=== PATIENT | female | born 1945 | race Caucasian/White ===

== ENCOUNTER 2016-10-17 20:00 | Inpatient (IN) | payer MEDICARE ==
[2016-10-17] MEDS ORDERED: SODIUM CHLORIDE 0.9% 500 ML IV STA (20:37)
[2016-10-17 21:12] LABS: Basophils % (A) 0 %; CH 31.3; CHCM 33.3; Eosinophils # (A) 0.1 k/uL (0-0.7); Eosinophils % (A) 1 %; HCT 37.9 % (34.0-46.0); HDW 2.54; HGB 12.5 gm/dL (11.4-16.0); Luc % (Auto) 1; Lymphocytes # (A) 1.1 k/uL (1.0-4.8); Lymphocytes % (A) 10 %; MCH 31.3 pg (25.0-35.0); MCHC 33.1 g/dL (31.0-37.0); MCV 94.5 fL (80.0-100.0); Mean Platelet Volume 8.5; Monocytes # (A) 0.5 k/uL (0-1.0); Monocytes % (A) 5 %; Neutrophils # (A) 8.5 k/uL (1.3-7.7); Neutrophils % (A) 82 %; RBC 4.01 m/uL (3.80-5.40); RDW 14.1 % (11.5-15.5); WBC 10.4 k/uL (3.8-10.6); WBC (Perox) 10.54
[2016-10-17 21:20] LABS: Prothrombin Time 10.2 sec (9.0-12.0)
[2016-10-17 21:21] LABS: ALT 69 U/L (9-52); AST 55 U/L (14-36); Alkaline Phosphatase 99 U/L (38-126); Anion Gap 14 mmol/L; Blood Urea Nitrogen 39 mg/dL (7-17); Calcium 10.4 mg/dL (8.4-10.2); Carbon Dioxide 25 mmol/L (22-30); Chloride 104 mmol/L (98-107); Glucose 243 mg/dL (74-99); Magnesium 1.8 mg/dL (1.6-2.3); Non-African American GFR(MDRD) 51 (>60 ml/min/1.73 sqM); Potassium 4.7 mmol/L (3.5-5.1); Sodium 143 mmol/L (137-145); Total Bilirubin 0.6 mg/dL (0.2-1.3); Total Protein 7.6 g/dL (6.3-8.2)
--- NOTE | 2016-10-17 21:30 | XR ---
EXAMINATION TYPE: XR chest 2V DATE OF EXAM: 10/17/2016 9:24 PM COMPARISON: 02/06/2016 HISTORY: Chest pain TECHNIQUE: Frontal and lateral views of the chest are obtained. FINDINGS: Heart and mediastinum are normal. Lungs are clear. Diaphragm is normal. Bony thorax is int act. IMPRESSION: Normal chest. No change.
--- NOTE | 2016-10-17 21:34 | XR ---
EXAMINATION TYPE: XR Hip LT and AP Pelvis DATE OF EXAM: 10/17/2016 9:31 PM COMPARISON: NONE HISTORY: Left hip pain TECHNIQUE: A single AP view of the pelvis is obtained. Two views of the left hip are obtained. FINDINGS: The pelvic ring is intact. Proximal left femur and hip joint are intact. There is no sign of a fracture. Sacroiliac joints appear normal. There is acetabular spur formation. CONCLUSION: Negative pelvis and left hip exam. Mild acetabular spurring noted.
--- NOTE | 2016-10-17 21:35 | XR ---
EXAMINATION TYPE: XR femur LT DATE OF EXAM: 10/17/2016 9:31 PM COMPARISON: NONE HISTORY: Pain TECHNIQUE: 4 views FINDINGS: There is a left knee prosthesis. Components appear in good position. I see no fracture. IMPRESSION: Negative left femur exam.
--- NOTE | 2016-10-17 21:36 | XR ---
EXAMINATION TYPE: XR tibia fibula LT DATE OF EXAM: 10/17/2016 9:31 PM COMPARISON: NONE HISTORY: Pain TECHNIQUE: 5 views FINDINGS: There is a left knee prosthesis. There is subcutaneous edema. Ankle mortise is anatomic. I see no fracture. There are plantar and Achilles calcaneal spurs. IMPRESSION: Degenerative changes. Soft tissue swelling. No fracture.
[2016-10-17 21:38] LABS: Partial Thromboplastin Time 20.2 sec (22.0-30.0)
--- NOTE | 2016-10-17 21:42 | ED ---
Fall HPI - General Chief Complaint: Fall Stated Complaint: Fall/Leg Injury Time Seen by Provider: 10/17/16 20:07 Source: patient, RN notes reviewed, old records reviewed Mode of arrival: EMS - History of Present Illness Initial Comments: Patient is a 71-year-old female chief complaint of a fall injury and injuring her left leg. Patient reports that she's felt twice today while trying to get up from the bathroom to her wheelchair. Patient reports that she has been feeling extremely weak. Patient reports that she also feels lightheaded. She denies any chest pain or abdominal pain. She reports that she has history of diabetes, hypertension and hyperlipidemia. Patient reports that she does have some significant swelling over her lower extremities. She reports that her left lower extremity seems to be worse than her right and she has difficulty ambulating and moving her legs. She does have bilateral knee replacements. Patient states that when she fell she had a call EMS to help her up. - Related Data Home Medications Medication Instructions Recorded Confirmed Aspirin EC [Ecotrin Low Dose] 81 mg PO DAILY 02/06/16 10/17/16 Glimepiride [Amaryl] 2 mg PO PC-LUNCH 02/06/16 10/17/16 Glimepiride [Amaryl] 6 mg PO QAM 02/06/16 10/17/16 Hydrochlorothiazide [Hydrodiuril] 25 mg PO DAILY 02/06/16 10/17/16 Losartan [Cozaar] 50 mg PO DAILY 02/06/16 10/17/16 Nateglinide [Starlix] 120 mg PO PC-SUPPER 02/06/16 10/17/16 Potassium Chloride [K-Tab ER] 8 meq PO DAILY 02/06/16 10/17/16 cloNIDine HCL [Catapres] 0.1 mg PO TID 02/06/16 10/17/16 metFORMIN HCL 1,000 mg PO AC-BID 02/06/16 10/17/16 sitaGLIPtin [Januvia] 100 mg PO DAILY 02/06/16 10/17/16 Ascorbic Acid [Vitamin C] 500 mg PO DAILY 02/07/16 10/17/16 Calcium Carbonate [Calcium] 500 mg PO DAILY 02/07/16 10/17/16 Cholecalciferol [Vitamin D3] 2,000 unit PO DAILY 02/07/16 10/17/16 Magnesium Chloride [Slow-Mag] 128 mg PO DAILY 02/07/16 10/17/16 Multivits-Min/Iron/FA/Lutein 1 each PO DAILY 02/07/16 10/17/16 [Centrum Silver Women Tablet] Vitamin E (Dl,Tocopheryl Acet) 400 mg PO DAILY 02/07/16 10/17/16 [Vitamin E] Atorvastatin [Lipitor] 40 mg PO HS 10/17/16 10/17/16 Fish Oil/Dha/Epa [Fish Oil 1,200 1 cap PO DAILY 10/17/16 10/17/16 mg Fish Oil] Gabapentin [Neurontin] 300 mg PO TID 10/17/16 10/17/16 Spironolactone [Aldactone] 25 mg PO DAILY 10/17/16 10/17/16 amLODIPine [Norvasc] 2.5 mg PO DAILY 10/17/16 10/17/16 Previous Rx's Medication Instructions Recorded amLODIPine [Norvasc] 5 mg PO DAILY tab 02/09/16 Allergies Allergy/AdvReac Type Severity Reaction Status Date / Time No Known Allergies Allergy Verified 10/17/16 20:30 Review of Systems ROS Statement: Those systems with pertinent positive or pertinent negative responses have been documented in the HPI. ROS Other: All systems not noted in ROS Statement are negative. Past Medical History Past Medical History: Diabetes Mellitus, Hyperlipidemia, Hypertension, Osteoarthritis (OA) Additional Past Medical History / Comment(s): neuropathy/FEET, gout lt ankle, chronic back pain, lt rotator cuff tear,recent lt ankle sprain History of Any Multi-Drug Resistant Organisms: None Reported Past Surgical History: Hysterectomy, Joint Replacement, Tonsillectomy Additional Past Surgical History / Comment(s): bilateral knee replacement , hysterectomy- 5 pound benign stump tumor removed Past Anesthesia/Blood Transfusion Reactions: No Reported Reaction Past Psychological History: Anxiety, Depression Additional Psychological History / Comment(s): pt lives with her sig other of 19 years-luis fernando. pt stated recently was hospitalized at [facility] for the same thing she is coming in with on 02-06-16. pt had just gotten out of rehab at [facility] today ,went home and was to weak to get herself to bathroom and fell. Smoking Status: Never smoker Past Alcohol Use History: None Reported Past Drug Use History: None Reported - Past Family History Mother Family Medical History: Congestive Heart Failure (CHF), Coronary Artery Disease (CAD), Diabetes Mellitus Brother(s) Additional Family Medical History / Comment(s): at age 38-aneurysm Father Family Medical History: Coronary Artery Disease (CAD), Diabetes Mellitus, Renal Disease Additional Family Medical History / Comment(s): cabg General Exam - General Exam Comments Initial Comments: Patient is a morbidly obese 71-year-old female. She does not appear to be in any significant distress. She is somewhat labored in her breathing. She reports that this is normal for her. Limitations: no limitations General appearance: alert, in no apparent distress Head exam: Present: atraumatic, normocephalic, normal inspection Eye exam: Present: normal appearance, PERRL, EOMI. Absent: scleral icterus, conjunctival injection, periorbital swelling ENT exam: Present: normal exam, mucous membranes moist Neck exam: Present: normal inspection. Absent: tenderness, meningismus, lymphadenopathy Respiratory exam: Present: decreased breath sounds. Absent: normal lung sounds bilaterally, respiratory distress, wheezes, rales, rhonchi, stridor Cardiovascular Exam: Present: regular rate, normal rhythm, normal heart sounds. Absent: systolic murmur, diastolic murmur, rubs, gallop, clicks GI/Abdominal exam: Present: soft, normal bowel sounds. Absent: distended, tenderness, guarding, rebound, rigid Extremities exam: Present: normal inspection, full ROM, normal capillary refill , other (Patient has significant bilateral pedal edema. 4+ pitting edema in the left lower sternal any. Patient has fungal infection and bilateral toes.). Absent: tenderness, pedal edema, joint swelling, calf tenderness Back exam: Present: normal inspection Neurological exam: Present: alert, oriented X3, CN II-XII intact Psychiatric exam: Present: normal affect, normal mood Skin exam: Present: warm, dry, intact, normal color. Absent: rash Course Vital Signs 10/17/16 20:06 Temperature 99.2 F Pulse Rate 92 Respiratory 18 Rate Blood Pressure 166/74 O2 Sat by Pulse 94 L Oximetry Medical Decision Making - Medical Decision Making Patient is a 71-year-old female chief complaint of left leg pain and feeling weak after falling twice today. Patient ports a prior to her fall she felt lightheaded and dizzy. Patient labs are reviewed. She does have an elevated troponin of 0.086. 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 Her primary care doctor is Dr. Hastings. She states that she's had significant swelling in her bilateral lower extremities patient denies any specific chest pain. Patient also shows signs of kidney damage with elevated BUN and creatinine. Patient will be started on maintenance fluids over hydrate her and cause more pedal edema. Patient will have repeat cardiac enzymes and consult cardiology. - Lab Data Result diagrams: 10/17/16 21:02 10/17/16 21:02 Lab Results 10/17/16 10/17/16 10/17/16 Range/Units 21:02 21:02 21:02 WBC 10.4 (3.8-10.6) k/uL RBC 4.01 (3.80-5.40) m/uL Hgb 12.5 (11.4-16.0) gm/dL Hct 37.9 (34.0-46.0) % MCV 94.5 (80.0-100.0) fL MCH 31.3 (25.0-35.0) pg MCHC 33.1 (31.0-37.0) g/dL RDW 14.1 (11.5-15.5) % Plt Count 149 L (150-450) k/uL Neutrophils % 82 % Lymphocytes % 10 % Monocytes % 5 % Eosinophils % 1 % Basophils % 0 % Neutrophils # 8.5 H (1.3-7.7) k/uL Lymphocytes # 1.1 (1.0-4.8) k/uL Monocytes # 0.5 (0-1.0) k/uL Eosinophils # 0.1 (0-0.7) k/uL Basophils # 0.0 (0-0.2) k/uL PT (9.0-12.0) sec INR (<1.1) APTT (22.0-30.0) sec Sodium 143 (137-145) mmol/L Potassium 4.7 (3.5-5.1) mmol/L Chloride 104 (98-107) mmol/L Carbon Dioxide 25 (22-30) mmol/L Anion Gap 14 mmol/L BUN 39 H (7-17) mg/dL Creatinine 1.06 H (0.52-1.04) mg/dL Est GFR (MDRD) Af Amer >60 (>60 ml/min/1.73 sqM) Est GFR (MDRD) Non-Af 51 (>60 ml/min/1.73 sqM) Glucose 243 H (74-99) mg/dL Calcium 10.4 H (8.4-10.2) mg/dL Magnesium 1.8 (1.6-2.3) mg/dL Total Bilirubin 0.6 (0.2-1.3) mg/dL AST 55 H (14-36) U/L ALT 69 H (9-52) U/L Alkaline Phosphatase 99 (38-126) U/L Total Creatine Kinase 112 (30-135) U/L CK-MB (CK-2) 1.9 (0.0-2.4) ng/mL CK-MB (CK-2) Rel Index 1.7 Troponin I 0.086 H* (0.000-0.034) ng/mL Total Protein 7.6 (6.3-8.2) g/dL Albumin 4.4 (3.5-5.0) g/dL 10/17/16 Range/Units 21:02 WBC (3.8-10.6) k/uL RBC (3.80-5.40) m/uL Hgb (11.4-16.0) gm/dL Hct (34.0-46.0) % MCV (80.0-100.0) fL MCH (25.0-35.0) pg MCHC (31.0-37.0) g/dL RDW (11.5-15.5) % Plt Count (150-450) k/uL Neutrophils % % Lymphocytes % % Monocytes % % Eosinophils % % Basophils % % Neutrophils # (1.3-7.7) k/uL Lymphocytes # (1.0-4.8) k/uL Monocytes # (0-1.0) k/uL Eosinophils # (0-0.7) k/uL Basophils # (0-0.2) k/uL PT 10.2 (9.0-12.0) sec INR 1.0 (<1.1) APTT 20.2 L (22.0-30.0) sec Sodium (137-145) mmol/L Potassium (3.5-5.1) mmol/L Chloride (98-107) mmol/L Carbon Dioxide (22-30) mmol/L Anion Gap mmol/L BUN (7-17) mg/dL Creatinine (0.52-1.04) mg/dL Est GFR (MDRD) Af Amer (>60 ml/min/1.73 sqM) Est GFR (MDRD) Non-Af (>60 ml/min/1.73 sqM) Glucose (74-99) mg/dL Calcium (8.4-10.2) mg/dL Magnesium (1.6-2.3) mg/dL Total Bilirubin (0.2-1.3) mg/dL AST (14-36) U/L ALT (9-52) U/L Alkaline Phosphatase (38-126) U/L Total Creatine Kinase (30-135) U/L CK-MB (CK-2) (0.0-2.4) ng/mL CK-MB (CK-2) Rel Index Troponin I (0.000-0.034) ng/mL Total Protein (6.3-8.2) g/dL Albumin (3.5-5.0) g/dL 10/17/16 21:42 Patient's EKG shows normal sinus rhythm. Nonspecific ST wave abnormality. Patient entered. 77 bpm. One edema seconds. Care estrogen 100 ms. QT/QTC 386/436 ms. - Radiology Data Radiology results: report reviewed Tib-fib shows changes, soft tissue swelling. No fracture. Negative pelvis and left hip exam. Mild acetabular spurring noted. Negative left femur exam. Chest x-ray is normal. No change. Disposition Clinical Impression: Elevated troponin, Heart failure, Left leg pain, Weak, Falls Disposition: ADMITTED IP TO THIS [facility] Condition: Stable Time of Disposition: 22:13
[2016-10-17 21:44] LABS: Creatine Kinase MB 1.9 ng/mL (0.0-2.4)
[2016-10-17 21:48] LABS: Troponin I 0.086 ng/mL (0.000-0.034)
[2016-10-17] MEDS ORDERED: ONDANSETRON 4 MG/2 ML VIAL IVP PRN (22:13)
[2016-10-17] MEDS ORDERED: NALOXONE 0.4 MG/ML 1 ML VIAL IV PRN (22:13)
[2016-10-17] MEDS ORDERED: ACETAMINOPHEN TAB 325 MG TAB PO PRN (22:13)
[2016-10-17] MEDS ORDERED: Acetaminophen-Codeine 300-30mg TAB PO PRN (22:13)
[2016-10-17] MEDS ORDERED: HYDROmorphone 1 MG/ML 1 ML SYRINGE IV PRN (22:13)
[2016-10-17] MEDS: SODIUM CHLORIDE 0.9% 1,000 ML IV SCH (22:28)
[2016-10-18] MEDS ORDERED: ATORVASTATIN 40 MG TAB PO STA (00:01)
[2016-10-18] MEDS ORDERED: GABAPENTIN 300 MG CAP PO STA (00:34)
[2016-10-18 00:38] LABS: Glucose,Whole Blood 219 mg/dL (75-99)
[2016-10-18] MEDS: IBUPROFEN 600 MG TAB PO SCH ×2 (01:08→09:28)
[2016-10-18 01:53] VITALS: BMI 49.8
[2016-10-18 04:15] LABS: Creatine Kinase MB 2.1 ng/mL (0.0-2.4)
[2016-10-18 04:24] LABS: Troponin I 0.104 ng/mL (0.000-0.034)
[2016-10-18 06:27] LABS: Glucose,Whole Blood 183 mg/dL (75-99)
[2016-10-18] MEDS ORDERED: PANTOPRAZOLE 40 MG/10 ML VIAL IV SCH (09:00)
[2016-10-18] MEDS ORDERED: amLODIPine 5 MG TAB PO SCH (09:00)
[2016-10-18] MEDS ORDERED: cloNIDine HCL 0.1 MG TAB PO SCH (09:00)
[2016-10-18] MEDS ORDERED: NON-FORMULARY DRUG (Fish Oil/Dha/Epa [Fish Oil 1,200 Mg Fish Oil] 1 CAP) PO SCH (09:00)
[2016-10-18] MEDS ORDERED: GABAPENTIN 300 MG CAP PO SCH (09:00)
[2016-10-18 09:21] LABS: Creatine Kinase MB 1.7 ng/mL (0.0-2.4)
[2016-10-18 09:26] LABS: Troponin I 0.084 ng/mL (0.000-0.034)
[2016-10-18] MEDS: ASPIRIN 81 MG CHEW PO SCH (09:31)
[2016-10-18] MEDS: POTASSIUM CHLORIDE ER 10 MEQ TAB.ER.PRT PO SCH (09:31)
[2016-10-18] MEDS: MAGNESIUM OXIDE 400 MG TAB PO SCH (09:31)
[2016-10-18] MEDS: CALCIUM CARBONATE 500 MG CHEWABLE PO SCH (09:32)
[2016-10-18] MEDS: ASCORBIC ACID 500 MG TAB PO SCH (09:32)
[2016-10-18] MEDS: CHOLECALCIFEROL 1,000 UNIT TAB PO SCH (09:33)
[2016-10-18] MEDS: LOSARTAN 50 MG TAB PO SCH (09:35)
[2016-10-18] MEDS: SPIRONOLACTONE 25 MG TAB PO SCH (09:35)
[2016-10-18] MEDS: HYDROCHLOROTHIAZIDE 25 MG TAB PO SCH (09:35)
[2016-10-18] MEDS: GLIMEPIRIDE 2 MG TAB PO SCH ×2 (09:36→14:21)
[2016-10-18] MEDS: LINAGLIPTIN 5 MG TABLET PO SCH (09:36)
[2016-10-18] MEDS: SODIUM CHLORIDE 0.9% 1,000 ML IV SCH (09:37)
[2016-10-18] MEDS: ENOXAPARIN 40 MG/0.4 ML SYRINGE SQ SCH (10:38)
[2016-10-18] MEDS: metFORMIN 500 MG TAB PO SCH ×2 (10:38→17:31)
--- NOTE | 2016-10-18 10:54 | P.CRDCN ---
History of Present Illness Consult date: 10/18/16 Requesting physician: Raymond Obrien Reason for Consult (text): Abnormal troponins Chief complaint: Falls History of present illness: This is a 71-year-old female with history of hypertension, diabetes, hyperlipidemia, strong family history of premature coronary artery disease, obesity, who follows with Dr. Betts as her etl lead in [facility]. She presents to the hospital after experiencing 2 falls at home. Apparently she was transitioning from her lazy boy chair to her wheelchair when her legs became extremely weak, and she fell to the ground. EMS arrived and assisted her to get to her wheelchair, she states then that she proceeded to the restroom , attempted to stand up to use her walker and again fell down. For this reason she came to the emergency room for further evaluation. Patient states that day in general she did not feel well, she was sweaty because the house was warm, had some mild nausea, denies any chest pain or difficulty in breathing. EKG on arrival showed a normal sinus rhythm with nonspecific ST-T wave changes. Chest x-ray normal. Left femur x-ray normal. Pelvic and left hip exam and x-ray normal. X-ray of left tibia reveal degenerative change and soft tissue swelling with no fracture. I pressure on arrival 166/74 with a heart rate in the 90s. 94% on room air. Temperature 99.2. Blood pressure this morning 140/ 60 with a heart rate in the 70s. White blood cell count normal, hemoglobin 12.5 , platelet count 149, potassium 4.7, BUN 39, creatinine 1.0. AST 55, ALT 69, troponins 0.086, 0.10, 0.084. Cardiology consultation was requested because of abnormal troponin values. At the time of my examination this morning, patient states she feels mildly tired and achy all over. Denies any chest discomfort or difficulty in breathing. Past Medical History Past Medical History: Diabetes Mellitus, Hyperlipidemia, Hypertension, Osteoarthritis (OA) Additional Past Medical History / Comment(s): neuropathy/FEET, gout lt ankle, chronic back pain, lt rotator cuff tear,recent lt ankle strain. History of Any Multi-Drug Resistant Organisms: None Reported Past Surgical History: Hysterectomy, Joint Replacement, Tonsillectomy Additional Past Surgical History / Comment(s): bilateral knee replacement , hysterectomy- 5 pound benign stump tumor removed Past Anesthesia/Blood Transfusion Reactions: No Reported Reaction Past Psychological History: Anxiety, Depression Additional Psychological History / Comment(s): pt lives with her sig other of 19 years-luis fernando. pt stated recently was hospitalized at [facility] for the same thing she is coming in with on 02-06-16. pt had just gotten out of rehab at [facility] today ,went home and was to weak to get herself to bathroom and fell. Smoking Status: Never smoker Past Alcohol Use History: None Reported Past Drug Use History: None Reported - Past Family History Mother Family Medical History: Congestive Heart Failure (CHF), Coronary Artery Disease (CAD), Diabetes Mellitus Brother(s) Additional Family Medical History / Comment(s): at age 38-aneurysm Father Family Medical History: Coronary Artery Disease (CAD), Diabetes Mellitus, Renal Disease Additional Family Medical History / Comment(s): cabg Medications and Allergies Home Medications Medication Instructions Recorded Confirmed Type Aspirin EC [Ecotrin Low Dose] 81 mg PO DAILY 02/06/16 10/17/16 History Glimepiride [Amaryl] 2 mg PO PC-LUNCH 02/06/16 10/17/16 History Glimepiride [Amaryl] 6 mg PO QAM 02/06/16 10/17/16 History Hydrochlorothiazide [Hydrodiuril] 25 mg PO DAILY 02/06/16 10/17/16 History Losartan [Cozaar] 50 mg PO DAILY 02/06/16 10/17/16 History Nateglinide [Starlix] 120 mg PO PC-SUPPER 02/06/16 10/17/16 History Potassium Chloride [K-Tab ER] 8 meq PO DAILY 02/06/16 10/17/16 History cloNIDine HCL [Catapres] 0.1 mg PO TID 02/06/16 10/17/16 History metFORMIN HCL 1,000 mg PO AC-BID 02/06/16 10/17/16 History sitaGLIPtin [Januvia] 100 mg PO DAILY 02/06/16 10/17/16 History Ascorbic Acid [Vitamin C] 500 mg PO DAILY 02/07/16 10/17/16 History Calcium Carbonate [Calcium] 500 mg PO DAILY 02/07/16 10/17/16 History Cholecalciferol [Vitamin D3] 2,000 unit PO DAILY 02/07/16 10/17/16 History Magnesium Chloride [Slow-Mag] 128 mg PO DAILY 02/07/16 10/17/16 History Multivits-Min/Iron/FA/Lutein 1 each PO DAILY 02/07/16 10/17/16 History [Centrum Silver Women Tablet] Vitamin E (Dl,Tocopheryl Acet) 400 mg PO DAILY 02/07/16 10/17/16 History [Vitamin E] Atorvastatin [Lipitor] 40 mg PO HS 10/17/16 10/17/16 History Fish Oil/Dha/Epa [Fish Oil 1,200 1 cap PO DAILY 10/17/16 10/17/16 History mg Fish Oil] Gabapentin [Neurontin] 300 mg PO TID 10/17/16 10/17/16 History Spironolactone [Aldactone] 25 mg PO DAILY 10/17/16 10/17/16 History amLODIPine [Norvasc] 2.5 mg PO DAILY 10/17/16 10/17/16 History Allergies Allergy/AdvReac Type Severity Reaction Status Date / Time No Known Allergies Allergy Verified 10/17/16 20:30 Physical Exam Vitals: Vital Signs Temp Pulse Pulse Resp BP BP Pulse Ox 10/18/16 04:00 98 F 72 18 140/67 95 10/17/16 23:57 97.8 F 77 18 167/72 94 L 10/17/16 23:39 78 18 166/75 94 L Intake and Output 10/17/16 10/18/16 10/18/16 22:59 06:59 14:59 Intake Total 1800 Balance 1800 Intake: Intake, IV Titration 1800 Amount Sodium Chloride 0.9% 1, 800 000 ml @ 100 mls/hr IV . Q10H ANGELIC Rx#:[id number] Sodium Chloride 0.9% 500 1000 ml @ 999 mls/hr IV .Q31M STA Rx#:[id number] Other: Voiding Method Bedpan # Voids 2 Weight 148 kg PHYSICAL EXAMINATION: HEENT: Head is atraumatic, normocephalic. Pupils equal, round. Neck is supple. There is no elevated jugular venous pressure. HEART EXAMINATION: Heart S1, S2 normal. No murmur or gallop heard. CHEST EXAMINATION: Lungs are clear to auscultation and precussion. No chest wall tenderness is noted on palpation or with deep breathing. ABDOMEN: Soft, obese, nontender. Bowel sounds are heard. No organomegaly noted. EXTREMITIES: 2+ peripheral pulses with trace evidence of peripheral edema and no calf tenderness noted. NEUROLOGIC patient is awake, alert and oriented -3. . Results 10/17/16 21:02 10/17/16 21:02 Cardiac Enzymes 10/18/16 10/18/16 Range/Units 03:15 08:16 CK-MB (CK-2) 2.1 1.7 (0.0-2.4) ng/mL Troponin I 0.104 H* 0.084 H* (0.000-0.034) ng/mL Current Medications Generic Name Dose Route Start Last Admin Trade Name Freq PRN Reason Stop Dose Admin Acetaminophen 650 mg 10/17/16 22:13 Tylenol Tab PO Q6HR PRN Mild Pain or Fever > 100.5 Acetaminophen/Codeine Phosphate 1 each 10/17/16 22:13 Tylenol #3 PO Q4HR PRN Moderate Pain Amlodipine Besylate 5 mg 10/18/16 09:00 10/18/16 10:39 Norvasc PO 5 mg DAILY ANGELIC Administration Ascorbic Acid 500 mg 10/18/16 09:00 10/18/16 09:32 Vitamin C PO 500 mg DAILY ANGELIC Administration Aspirin 81 mg 10/18/16 09:00 10/18/16 09:31 Aspirin PO 81 mg DAILY ANGELIC Administration Atorvastatin Calcium 40 mg 10/18/16 21:00 Lipitor PO HS [facility] Calcium Carbonate/Glycine 500 mg 10/18/16 09:00 10/18/16 09:32 Tums PO 500 mg DAILY ANGELIC Administration Cholecalciferol 2,000 unit 10/18/16 09:00 10/18/16 09:33 Vitamin D3 PO 2,000 unit DAILY ANGELIC Administration Clonidine 0.1 mg 10/18/16 09:00 10/18/16 09:33 Catapres PO 0.1 mg TID ANGELIC Administration Enoxaparin Sodium 40 mg 10/18/16 09:00 10/18/16 10:38 Lovenox SQ 40 mg DAILY ANGELIC Administration Gabapentin 300 mg 10/18/16 09:00 10/18/16 09:34 Neurontin PO 300 mg TID ANGELIC Administration Glimepiride 2 mg 10/18/16 13:30 Amaryl PO PC-LUNCH ANGELIC Glimepiride 6 mg 10/18/16 09:00 10/18/16 09:36 Amaryl PO 6 mg QAM ANGELIC Administration Hydrochlorothiazide 25 mg 10/18/16 09:00 10/18/16 09:35 Hydrodiuril PO 25 mg DAILY ANGELIC Administration Hydromorphone HCl 1 mg 10/17/16 22:13 Dilaudid IV Q3HR PRN Severe Pain Sodium Chloride 1,000 mls @ 100 mls/hr 10/17/16 22:15 10/18/16 09:37 Saline 0.9% IV 100 mls/hr .Q10H ANGELIC Administration Ibuprofen 600 mg 10/18/16 01:00 10/18/16 09:28 Motrin PO 600 mg TID ANGELIC Administration Linagliptin 5 mg 10/18/16 09:00 10/18/16 09:36 Tradjenta PO 5 mg DAILY ANGELIC Administration Losartan Potassium 50 mg 10/18/16 09:00 10/18/16 09:35 Cozaar PO 50 mg DAILY ANGELIC Administration Magnesium Oxide 200 mg 10/18/16 09:00 10/18/16 09:31 Mag-Ox PO 200 mg DAILY ANGELIC Administration Metformin HCl 1,000 mg 10/18/16 07:30 10/18/16 10:38 Glucophage PO 1,000 mg AC-BID ANGELIC Administration Naloxone HCl 0.2 mg 10/17/16 22:13 Narcan IV Q2M PRN Opioid Reversal Nateglinide 120 mg 10/18/16 18:30 Starlix PO PC-SUPPER ANGEILC Ondansetron HCl 4 mg 10/17/16 22:13 Zofran IVP Q8HR PRN Nausea And Vomiting Pantoprazole Sodium 40 mg 10/18/16 09:00 10/18/16 09:25 Protonix IV 40 mg DAILY ANGELIC Administration Potassium Chloride 10 meq 10/18/16 09:00 10/18/16 09:31 K-Dur 10 PO 10 meq DAILY ANGELIC Administration Spironolactone 25 mg 10/18/16 09:00 10/18/16 09:35 Aldactone PO 25 mg DAILY ANGELIC Administration Intake and Output 10/17/16 10/18/16 10/18/16 22:59 06:59 14:59 Intake Total 1800 Balance 1800 Intake: Intake, IV Titration 1800 Amount Sodium Chloride 0.9% 1, 800 000 ml @ 100 mls/hr IV . Q10H ANGELIC Rx#:[id number] Sodium Chloride 0.9% 500 1000 ml @ 999 mls/hr IV .Q31M STA Rx#:[id number] Other: Voiding Method Bedpan # Voids 2 Weight 148 kg EKG Interpretations (text) EKG shows normal sinus rhythm with nonspecific ST-T wave changes. Assessment and Plan Plan: Assessment and Plan #1 episode of falls, likely secondary to weakness, no evidence of syncope #2 hypertension history #3 diabetes #4 hyperlipidemia #5 obesity #6 family history of premature coronary artery disease #7 chronic bilateral lower extremity weakness with associated neuropathy #8 abnormal troponins, not consistent with acute coronary syndrome. Plan We will obtain an echocardiogram with Doppler study. It does not appear that the patient had syncopal episode, troponins not consistent with acute coronary syndrome. We will attempt to obtain the records from the patient's etl lead in [facility], she thinks her last Lexiscan stress test was performed approximately 2 years ago. continue current medications. DNP note has been reviewed, I agree with a documented findings and plan of care. Patient was seen and examined.
[2016-10-18 11:01] LABS: Hemoglobin A1C 8.2 % (4.2-6.1)
[2016-10-18 11:49] LABS: Glucose,Whole Blood 222 mg/dL (75-99)
[2016-10-18] MEDS: METOPROLOL TARTRATE 25 MG TAB PO SCH ×2 (14:22→20:40)
--- NOTE | 2016-10-18 14:27 | HP ---
DATE OF ADMISSION: 10/17/2016 PRESENTING COMPLAINT: Weak in the legs. HISTORY OF PRESENTING COMPLAINT: This is a pleasant 71-year-old patient of Dr. Hastings with rather extensive medical history. Patient's chronic stable conditions include diabetes mellitus type 2, hypertension, hyperlipidemia, osteoarthritis, peripheral neuropathy, anxiety, depression. Patient has some lower extremity swelling, has noted the swelling did go up. Patient normally uses a walker ( ) if any but does need help to get transferred. While she was dressing herself, she went down, not able to pick herself up. EMS had to be called out. The patient noticing that with increasing swelling of the legs, she has been having more trouble getting about. The patient has been having more trouble getting about. The patient has been in rehab in the past. There was no dizziness. No palpitation. No chest pain. REVIEW OF SYSTEMS: CONSTITUTIONAL: Tired. HEENT: None. RESPIRATORY: None. CARDIOVASCULAR: None. GASTROINTESTINAL: None. GENITOURINARY: None. MUSCULOSKELETAL: Aches and pains in multiple joints. Dermatological: Redness in the lower extremities. NEUROLOGICAL: Numbness and tingling in the lower extremities. PSYCHIATRY: Anxiety, depression. Past medical history of diabetes, hypertension, hyperlipidemia, osteoarthritis, peripheral neuropathy, anxiety, depression, gait dysfunction, gout, chronic low back pain, left rotator cuff tear, left recent ankle strain. PAST SURGICAL HISTORY: Hysterectomy, joint replacement, tonsillectomy, bilateral knee replacement, hysterectomy. Past psych history: Anxiety, depression. SOCIAL HISTORY: The patient lives at ( ) 19 years of age. No smoking. No alcohol. FAMILY HISTORY: Congestive heart failure, coronary artery disease, diabetes. HOME MEDICATIONS: 1. Januvia 100 mg a day. 2. Metformin 1000 mg p.o. b.i.d. 3. ( ) t.i.d. 4. Norvasc 5 mg p.o. daily. 5. Norvasc 2.5 mg p.o. daily. 6. Aldactone 25 mg daily p.o. daily. 7. Potassium 80 meq p.o. daily. 8. Starlix 120 mg with supper. 9. Centrum Silver 1 tablet p.o. daily. 10. Slow-Mag 128 mg p.o. daily. 11. Cozaar 50 mg p.o. daily. 12. Hydrochlorothiazide 25 mg daily. 13. Amaryl 2 mg with lunch, 6 mg in the morning. 14. Neurontin 300 mg p.o. t.i.d. 15. Fish oil 1 capsule p.o. daily. 16. Vitamin D3, 2000, p.o. daily. 17. Calcium 500 mg p.o. daily. 18. Lipitor 40 mg q.h.s. 19. Aspirin 81 mg daily. 20. Vitamin C 500 mg daily. ALLERGIES: None. On examination, temperature 99.2, pulse 98, respiratory rate 18, blood pressure 166/74, pulse ox 94% on room air. GENERAL APPEARANCE: Morbidly obese. BMI 56, sitting in bed, not in distress. EYES: Pupils equal. Conjunctivae normal. HEENT: External appearance of nose and ears normal. Oral cavity normal. NECK: Short, thick, JVD unable to assess. Mass not palpable. RESPIRATORY: Effort increased. LUNGS: Distant breath sounds. CARDIOVASCULAR: Heart sounds muffled. Edema present. ABDOMEN: Large, soft. Liver and spleen not palpable. LYMPHATIC: No lymph nodes palpable in neck or axillae. PSYCHIATRY: Alert and oriented x3. Mood and affect normal. NEUROLOGICAL: Pupils equal. Cranial nerves grossly intact. Decreased sensation distally. EXTREMITIES: Edema in both lower extremities. Dermatological: Some superficial redness in both shins. MUSCULOSKELETAL: Evidence of osteoarthritis, especially in the hands. INVESTIGATIONS: White count 10.4, hemoglobin 12.5, potassium 4.7. BUN 39, creatinine 1.06. Troponin 0.086, 0.104, 0.084. EKG nonspecific changes. The patient had tib/fibular hip femur x-rays that was negative for any fracture. Chest x-ray was reviewed. Report is unremarkable. ASSESSMENT: 1. This is a patient who presented with fall, which is multifactorial, including patient is morbidly obese, 56, usually needs help with transfer. Also in addition the patient has peripheral neuropathy, also especially lower extremity swelling and all of these contributed to patient having a fall. There was no obvious cardiac presentation. 2. Troponin leak, probably because of hemodynamic instability. Patient has been on the dry side. 3. Bilateral lower extremity edema, probably a combination of venous insufficiency and patient was also being on Amlodipine causing a side effect of the same and also the patient on Neurontin which also has a side effect of peripheral edema. 4. Diabetes mellitus type 2, chronically on oral hypoglycemic, causing peripheral neuropathy. 5. Essential hypertension, uncontrolled. 6. Hyperlipidemia. 7. Primary osteoarthritis, multiple joints bilateral. 8. Anxiety, depression, not otherwise specified. 9. Morbid obesity, body mass index 56.0. PLAN: Given the swelling of the lower extremity, we will cut back on the dose of Neurontin. Also discontinue the patient's Amlodipine. Instead, we will start on Lopressor 75 twice a day and given that is not a result from bradycardia, we will also scale back on the dose of Catapres and slowly wean it off. Patient is also on Cozaar. We will increase the dose of the same if needed. Given also muscle weakness, we will temporarily hold off patient's Lipitor and we will also use Silvadene cream and chaparro wrap of the lower extremity. 2-D echocardiogram is being ordered. Will also use naproxen for some anti-inflammatory effect. We will keep the patient on the Aldactone as that will actually help most of the blood pressure control and some fluids. We will discontinue the patient's hydrochlorothiazide. Patient already received some fluids on admission. We will discontinue the same given the edema. Cardiology opinion was sought. Care was discussed with the patient.
[2016-10-18] MEDS: GABAPENTIN 100 MG CAP PO SCH ×2 (16:18→22:09)
[2016-10-18 17:02] LABS: Glucose,Whole Blood 196 mg/dL (75-99)
[2016-10-18] MEDS ORDERED: NATEGLINIDE 120 MG TAB PO SCH (18:30)
[2016-10-18] MEDS: NAPROXEN 250 MG TAB PO SCH (20:40)
[2016-10-18] MEDS: cloNIDine HCL 0.1 MG TAB PO SCH (20:40)
[2016-10-18 20:45] LABS: Glucose,Whole Blood 183 mg/dL (75-99)
[2016-10-18] MEDS ORDERED: ATORVASTATIN 40 MG TAB PO SCH (21:00)
[2016-10-19 06:11] LABS: Glucose,Whole Blood 174 mg/dL (75-99)
[2016-10-19] MEDS: metFORMIN 500 MG TAB PO SCH ×2 (06:38→16:57)
[2016-10-19] MEDS: PANTOPRAZOLE 40 MG TABLET PO SCH (06:38)
[2016-10-19 07:31] LABS: Anion Gap 11 mmol/L; Blood Urea Nitrogen 34 mg/dL (7-17); Calcium 9.8 mg/dL (8.4-10.2); Carbon Dioxide 24 mmol/L (22-30); Chloride 105 mmol/L (98-107); Glucose 163 mg/dL (74-99); Non-African American GFR(MDRD) >60 (>60 ml/min/1.73 sqM); Sodium 140 mmol/L (137-145)
[2016-10-19 07:52] LABS: Potassium 4.5 mmol/L (3.5-5.1)
[2016-10-19] MEDS: NAPROXEN 250 MG TAB PO SCH ×2 (08:55→22:54)
[2016-10-19] MEDS: ENOXAPARIN 40 MG/0.4 ML SYRINGE SQ SCH (08:55)
[2016-10-19] MEDS: CHOLECALCIFEROL 1,000 UNIT TAB PO SCH (08:55)
[2016-10-19] MEDS: GABAPENTIN 100 MG CAP PO SCH ×3 (08:55→22:54)
[2016-10-19] MEDS: METOPROLOL TARTRATE 25 MG TAB PO SCH ×2 (08:56→23:28)
[2016-10-19] MEDS: LINAGLIPTIN 5 MG TABLET PO SCH (08:56)
[2016-10-19] MEDS: GLIMEPIRIDE 2 MG TAB PO SCH ×2 (08:56→12:51)
[2016-10-19] MEDS: MAGNESIUM OXIDE 400 MG TAB PO SCH (08:56)
[2016-10-19] MEDS: HYDROCHLOROTHIAZIDE 25 MG TAB PO SCH (08:56)
[2016-10-19] MEDS: ASPIRIN 81 MG CHEW PO SCH (08:56)
[2016-10-19] MEDS: ASCORBIC ACID 500 MG TAB PO SCH (08:57)
[2016-10-19] MEDS: CALCIUM CARBONATE 500 MG CHEWABLE PO SCH (08:57)
[2016-10-19] MEDS: cloNIDine HCL 0.1 MG TAB PO SCH ×2 (08:57→22:54)
[2016-10-19] MEDS: POTASSIUM CHLORIDE ER 10 MEQ TAB.ER.PRT PO SCH (08:57)
[2016-10-19] MEDS: LOSARTAN 50 MG TAB PO SCH (08:57)
[2016-10-19] MEDS: SPIRONOLACTONE 25 MG TAB PO SCH (08:57)
--- NOTE | 2016-10-19 10:43 | ECHOF ---
Referral Reason:abn trop MEASUREMENTS -------- HEIGHT: 162.6 cm WEIGHT: 147.9 kg BP: 145/67 RVIDd: 3.9 cm (< 3.3) IVSd: 1.5 cm (0.6 - 1.1) LVIDd: 5.7 cm (3.9 - 5.3) LVPWd: 1.4 cm (0.6 - 1.1) IVSs: 2.1 cm LVIDs: 3.9 cm LVPWs: 2.2 cm LA Diam: 3.1 cm (2.7 - 3.8) Ao Diam: 2.8 cm (2.0 - 3.7) AV Cusp: 1.8 cm (1.5 - 2.6) LA Diam: 3.4 cm (2.7 - 3.8) MV EXCURSION: 17.354 mm (> 18.000) MV EF SLOPE: 97 mm/s (70 - 150) EPSS: 0.2 cm MV E [place]: 0.59 m/s MV DecT: 258 ms MV A [place]: 0.82 m/s MV E/A Ratio: 0.71 AV maxP.86 mmHg AV meanP.20 mmHg RAP: 5.00 mmHg RVSP: 22.99 mmHg FINDINGS -------- Sinus rhythm. This was a technically difficult study with suboptimal views. Morbid Obesity There is moderate concentric left ventricular hypertrophy. Overall left ventricular systolic function is normal with, an EF between 55 - 60 %. The right ventricle is mild to moderately enlarged. The left atrial size is normal. The right atrium is normal in size. 1.5mg of Definity was utilized for enhancement of images Aortic valve is trileaflet and is mildly thickened. Peak/mean gradient across the Aortic Valve is 15.86mmHg / 7.20mmHg. Mild mitral annular calcification present. There is trace mitral regurgitation. Mild tricuspid regurgitation present. Pulmonic valve appears structurally normal. The aortic root size is normal. IVC Not well visulized. Echo free space may represent effusion or a pericardial fat pad. CONCLUSIONS -------- 1. Sinus rhythm. 2. Aortic valve is trileaflet and is mildly thickened. 3. Peak/mean gradient across the Aortic Valve is 15.86mmHg / 7.20mmHg. 4. Mild mitral annular calcification present. 5. There is trace mitral regurgitation. 6. Mild tricuspid regurgitation present. 7. Pulmonic valve appears structurally normal. 8. The aortic root size is normal. 9. IVC Not well visulized. 10. Echo free space may represent effusion or a pericardial fat pad. 11. This was a technically difficult study with suboptimal views. 12. Morbid Obesity 13. There is moderate concentric left ventricular hypertrophy. 14. Overall left ventricular systolic function is normal with, an EF between 55 - 60 %. 15. The right ventricle is mild to moderately enlarged. 16. The left atrial size is normal. 17. The right atrium is normal in size. 18. 1.5mg of Definity was utilized for enhancement of images [employer]ELD [employer]OP FARMER: Adenike Sullivan RDCS
[2016-10-19 11:52] LABS: Glucose,Whole Blood 179 mg/dL (75-99)
[2016-10-19 16:55] LABS: Glucose,Whole Blood 177 mg/dL (75-99)
[2016-10-19] MEDS: NATEGLINIDE 120 MG TAB PO SCH (16:57)
[2016-10-19 20:24] LABS: Glucose,Whole Blood 164 mg/dL (75-99)
[2016-10-20] MEDS: LOSARTAN 50 MG TAB PO SCH ×3 (00:08→21:02)
[2016-10-20 06:57] LABS: Glucose,Whole Blood 174 mg/dL (75-99)
[2016-10-20] MEDS: CHOLECALCIFEROL 1,000 UNIT TAB PO SCH (07:55)
[2016-10-20] MEDS: metFORMIN 500 MG TAB PO SCH ×2 (07:55→16:54)
[2016-10-20] MEDS: CALCIUM CARBONATE 500 MG CHEWABLE PO SCH (07:56)
[2016-10-20] MEDS: ENOXAPARIN 40 MG/0.4 ML SYRINGE SQ SCH (07:56)
[2016-10-20] MEDS: ASPIRIN 81 MG CHEW PO SCH (07:56)
[2016-10-20] MEDS: ASCORBIC ACID 500 MG TAB PO SCH (07:56)
[2016-10-20] MEDS: PANTOPRAZOLE 40 MG TABLET PO SCH (07:56)
[2016-10-20] MEDS: GABAPENTIN 100 MG CAP PO SCH ×3 (07:57→21:02)
[2016-10-20] MEDS: HYDROCHLOROTHIAZIDE 25 MG TAB PO SCH (07:58)
[2016-10-20] MEDS: GLIMEPIRIDE 2 MG TAB PO SCH ×2 (07:58→12:30)
[2016-10-20] MEDS: LINAGLIPTIN 5 MG TABLET PO SCH (07:59)
[2016-10-20] MEDS: METOPROLOL TARTRATE 50 MG TAB PO SCH ×2 (08:00→21:07)
[2016-10-20] MEDS: MAGNESIUM OXIDE 400 MG TAB PO SCH (08:00)
[2016-10-20] MEDS: NAPROXEN 250 MG TAB PO SCH ×2 (08:01→21:01)
[2016-10-20] MEDS: POTASSIUM CHLORIDE ER 10 MEQ TAB.ER.PRT PO SCH (08:02)
[2016-10-20] MEDS: SPIRONOLACTONE 25 MG TAB PO SCH (08:02)
--- NOTE | 2016-10-20 08:28 | PN ---
DATE OF SERVICE: 10/19/2016 PRESENTING COMPLAINT: Weakness in the leg. INTERVAL HISTORY: This very pleasant obese lady presented with fall which is felt to be multifactorial mainly being deconditioned. Being further compromised with morbid obesity and peripheral neuropathy for cardiorenal failure workup. Patient's medications amlodipine was discontinued and dose of Neurontin cut back which is also contributing to peripheral edema. Blood pressure medications were adjusted. Patient comfortable in the bed. Review of systems done for constitutional, cardiovascular, cardiovascular, GI, pulmonary; relevant findings as above. Current medications are reviewed and dose of Neurontin was cut back. On examination, temperature 96.9, pulse 62, respirations 16, blood pressure 152/54, pulse ox 94% on room air. GENERAL APPEARANCE: Sitting in bed, comfortable. EYES: Pupils equal. Conjunctivae normal. NECK: JVD not raised. Mass not palpable. RESPIRATORY: Effort increased. LUNGS: Distant breath sounds. CARDIOVASCULAR: Heart sounds muffled. Decreased edema. ABDOMEN: Large, soft. Liver and spleen not palpable. PSYCHIATRY: Alert and oriented x3. Mood and affect normal. Lower extremity Samson wrap in place. INVESTIGATIONS: Two-D echo shows EF 55% to 60%. Potassium 4.5. BUN 34, creatinine 0.85. Accu-Cheks are noted. ASSESSMENT: 1. Fall which is multifactorial including morbid obesity causing deconditioning complicated by peripheral neuropathy and lower extremity swelling, all contributing to her fall making her unsteady. 2. Troponin leak, probably from hemodynamic instability. 3. Bilateral lower extremity edema. combination of venous insufficiency. Patient also being on amlodipine, now that has been discontinued and also dose of Neurontin has been cut back. 4. Diabetes mellitus, type 2, on oral hypoglycemics causing peripheral neuropathy. 5. Essential hypertension, better controlled. 6. Hyperlipidemia. 7. Primary osteoarthritis multiple joints, bilaterally. 8. Anxiety and depression, not otherwise specified. 9. Morbid obesity, body mass index 56. PLAN: Patient's several medications were adjusted yesterday. Lower extremities Samson wrapped. Pain is better controlled. Patient told about will need some long time planning. The patient's blood pressure is better controlled. We will discontinue the Catapres and increase the dose of Lopressor further so that we can get off the Catapres and take care of any central side effects. 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
[2016-10-20] MEDS ORDERED: LOSARTAN 50 MG TAB PO SCH (09:00)
[2016-10-20 11:00] LABS: Glucose,Whole Blood 220 mg/dL (75-99)
[2016-10-20] MEDS: NATEGLINIDE 120 MG TAB PO SCH (16:54)
[2016-10-20 17:18] LABS: Glucose,Whole Blood 131 mg/dL (75-99)
[2016-10-20 20:54] LABS: Glucose,Whole Blood 146 mg/dL (75-99)
[2016-10-21 07:14] LABS: Glucose,Whole Blood 174 mg/dL (75-99)
--- NOTE | 2016-10-21 08:01 | PN ---
DATE OF SERVICE: 10/20/2016 PRESENTING COMPLAINT: Weakness in the legs. INTERVAL HISTORY: This pleasant lady presented with a fall, multifactorial. She is probably being deconditioned. Patient's Neurontin was cut back and amlodipine was discontinued. Blood pressure medication adjusted, looking at going to the [facility]. Edema has gone down. Review of systems done for constitutional, cardiovascular, GI, pulmonary; relevant finding as above. Current medications are reviewed. On examination, temperature 98.1, pulse 56, respiration 18, blood pressure 145/71, pulse ox 96% on room air. GENERAL APPEARANCE: Sitting up, comfortable. EYES: Pupils equal. Conjunctivae normal. NECK: JVD not raised. Mass not palpable. Respiratory effort normal. LUNGS: Decreased breath sounds. CARDIOVASCULAR: Heart sounds muffled, edema has gone down. Abdomen flat, soft. Liver and spleen not palpable. PSYCHIATRY: Alert and oriented x3. Mood and affect are normal. INVESTIGATIONS: Accu-Cheks are noted. ASSESSMENT: 1. Fall, multifactor including morbid obesity, deconditioning, peripheral neuropathy. 2. Lower extremity swelling both from heavy dose of Neurontin and amlodipine. 3. Troponin leak, probably from hemodynamic instability. 4. Diabetes mellitus type 2, on oral hypoglycemic causing peripheral neuropathy. 5. Essential hypertension. 6. Hyperlipidemia. 7. Primary osteoarthritis of multiple joints bilaterally. 8. Anxiety and depression not otherwise specified. 9. Morbid obesity, body mass index of 56. PLAN: Continue current medication and treatment plan. Blood pressure is well controlled. Looking at DC to the ECF.
[2016-10-21] MEDS: NAPROXEN 250 MG TAB PO SCH (09:03)
[2016-10-21] MEDS: GABAPENTIN 100 MG CAP PO SCH ×2 (09:03→16:30)
[2016-10-21] MEDS: ENOXAPARIN 40 MG/0.4 ML SYRINGE SQ SCH (09:03)
[2016-10-21] MEDS: LOSARTAN 50 MG TAB PO SCH (09:04)
[2016-10-21] MEDS: SPIRONOLACTONE 25 MG TAB PO SCH (09:04)
[2016-10-21] MEDS: LINAGLIPTIN 5 MG TABLET PO SCH (09:05)
[2016-10-21] MEDS: METOPROLOL TARTRATE 50 MG TAB PO SCH (09:05)
[2016-10-21] MEDS: PANTOPRAZOLE 40 MG TABLET PO SCH (09:05)
[2016-10-21] MEDS: metFORMIN 500 MG TAB PO SCH ×2 (09:05→17:58)
[2016-10-21] MEDS: CHOLECALCIFEROL 1,000 UNIT TAB PO SCH (09:06)
[2016-10-21] MEDS: GLIMEPIRIDE 2 MG TAB PO SCH ×2 (09:06→13:00)
[2016-10-21] MEDS: HYDROCHLOROTHIAZIDE 25 MG TAB PO SCH (09:06)
[2016-10-21] MEDS: CALCIUM CARBONATE 500 MG CHEWABLE PO SCH (09:07)
[2016-10-21] MEDS: MAGNESIUM OXIDE 400 MG TAB PO SCH (09:07)
[2016-10-21] MEDS: ASCORBIC ACID 500 MG TAB PO SCH (09:07)
[2016-10-21] MEDS: POTASSIUM CHLORIDE ER 10 MEQ TAB.ER.PRT PO SCH (09:07)
[2016-10-21] MEDS: ASPIRIN 81 MG CHEW PO SCH (09:07)
[2016-10-21 11:12] LABS: Glucose,Whole Blood 222 mg/dL (75-99)
[2016-10-21] MEDS: PRAZOSIN 1 MG CAP PO SCH (16:31)
[2016-10-21 17:15] LABS: Glucose,Whole Blood 175 mg/dL (75-99)
[2016-10-21] MEDS: NATEGLINIDE 120 MG TAB PO SCH (17:58)
[2016-10-21 20:10] LABS: Glucose,Whole Blood 173 mg/dL (75-99)
[2016-10-22] MEDS: NAPROXEN 250 MG TAB PO SCH ×2 (00:23→08:29)
[2016-10-22] MEDS: METOPROLOL TARTRATE 50 MG TAB PO SCH ×2 (00:23→08:31)
[2016-10-22] MEDS: LOSARTAN 50 MG TAB PO SCH ×2 (00:23→08:31)
[2016-10-22] MEDS: PRAZOSIN 1 MG CAP PO SCH ×2 (00:23→08:30)
[2016-10-22] MEDS: GABAPENTIN 100 MG CAP PO SCH ×3 (00:24→13:44)
[2016-10-22 07:16] LABS: Glucose,Whole Blood 176 mg/dL (75-99)
[2016-10-22] MEDS: ENOXAPARIN 40 MG/0.4 ML SYRINGE SQ SCH (08:28)
[2016-10-22] MEDS: metFORMIN 500 MG TAB PO SCH (08:28)
[2016-10-22] MEDS: MAGNESIUM OXIDE 400 MG TAB PO SCH (08:29)
[2016-10-22] MEDS: ASPIRIN 81 MG CHEW PO SCH (08:30)
[2016-10-22] MEDS: GLIMEPIRIDE 2 MG TAB PO SCH ×2 (08:30→13:42)
[2016-10-22] MEDS: CHOLECALCIFEROL 1,000 UNIT TAB PO SCH (08:30)
[2016-10-22] MEDS: CALCIUM CARBONATE 500 MG CHEWABLE PO SCH (08:30)
[2016-10-22 08:31] VITALS: BP 138/70; PULSE 64; RESP 20; TEMP 97.7
[2016-10-22] MEDS: PANTOPRAZOLE 40 MG TABLET PO SCH (08:31)
[2016-10-22] MEDS: ASCORBIC ACID 500 MG TAB PO SCH (08:31)
[2016-10-22] MEDS: LINAGLIPTIN 5 MG TABLET PO SCH (08:32)
[2016-10-22] MEDS: SPIRONOLACTONE 25 MG TAB PO SCH (08:32)
--- NOTE | 2016-10-22 09:07 | PN ---
DATE OF SERVICE: 10/21/2016 PRESENTING COMPLAINT: Tired. INTERVAL HISTORY: This patient is a pleasant lady who presented with fall, multifactorial. Significantly deconditioned. Because of significant edema in lower extremity patient's Neurontin was cutback and amlodipine was discontinued. Earlier today the patient was to ( ) well and then patient just felt unrestful, somewhat anxious I think. Blood pressure elevated and did go up to over 180 and 200 systolic; hence, I added prazosin. Review of systems done for constitutional, cardiovascular, GI, pulmonary; relevant findings above. Patient is rather anxious. Current medications are reviewed. On examination, temperature 98.1, pulse 55, respiration 18, blood pressure up to 209/84, repeat blood pressure is 125/77. GENERAL APPEARANCE: Lying in bed, somewhat anxious appearing, awake. EYES: Pupils equal. Conjunctivae normal. NECK: JVD not raised. Mass not palpable. RESPIRATORY: Effort normal. LUNGS: Decreased breath sounds. CARDIOVASCULAR: Heart sounds muffled. Edema down. ABDOMEN: Soft, nontender. Liver and spleen not palpable. PSYCHIATRY: Alert and oriented x3. Mood and affect anxious appearing. INVESTIGATIONS: BUN 34, creatinine 0.85. ASSESSMENT: 1. Fall, multifactorial, including morbid obesity, deconditioning and peripheral neuropathy. 2. Lower extremity swelling both from heavy dose of Neurontin and amlodipine, now much improved. 3. Troponin leak probably from hemodynamic instability. 4. Diabetes mellitus type 2, on oral hypoglycemic causing peripheral neuropathy. 5. Essential hypertension. 6. Hyperlipidemia. 7. Primary osteoarthritis of multiple joints bilaterally. 8. Anxiety, depression, not otherwise specified. 9. Anxiety, uncontrolled. 10. Morbid obesity, body mass index of 56. 11. Essential hypertension, uncontrolled. PLAN: At this point will [facility]. Prazosin 2 mg 3 times a day has been added. Will see how the patient does with that. Other medication and treatment plan is to continue.
[2016-10-22 11:31] LABS: Glucose,Whole Blood 203 mg/dL (75-99)
--- NOTE | 2016-10-22 15:05 | DS ---
DATE OF ADMISSION: 10/21/2016 DATE OF DISCHARGE: 10/22/2016 FINAL DIAGNOSES: 1. Fall, multifactorial, including morbid obesity, deconditioning, peripheral neuropathy. 2. Lower extremity swelling as a side effect of dose of Neurontin and amlodipine ( ) discontinued. 3. Troponin leak from hemodynamic instability. 4. Diabetes mellitus, type 2, on oral hypoglycemic causing peripheral neuropathy. 5. Essential hypertension, urgency. 6. Hyperlipidemia. 7. Primary osteoarthritis in multiple joints bilaterally. 8. Anxiety, depression not otherwise specified. 9. Morbid obesity; body mass index of 56. HOSPITAL COURSE: This patient presented with a fall felt to be multifactorial. Patient has morbid obesity, peripheral nephropathy, is deconditioned. Significant lower extremity swelling is present. Dose of Neurontin was cut back. Amlodipine was discontinued. Blood pressure was running high. Medications were adjusted. At the time of discharge, blood pressure is well controlled. Care was discussed with the patient and significant other in detail. Patient will need long-term support. Patient's 2-D echocardiogram showed preserved LV function of 55% to 60% and LVH. There was no fracture. On exam, lungs have distant breath sounds. CARDIOVASCULAR: First and second sounds normal. Decreased edema. Because the dose of Neurontin was cut, it may be increased if felt appropriate. Other pain medications were added, including naproxen. DISCHARGE MEDICATIONS: 1. Aspirin 81 mg p.o. daily. 2. Amaryl 2 mg p.o. with lunch, 6 mg p.o. daily. 3. Starlix 120 mg p.o. with supper. 4. Metformin 1000 mg p.o. b.i.d. 5. Januvia 100 mg p.o. daily. 6. Vitamin C 500 mg p.o. daily. 7. Calcium 500 mg p.o. daily. 8. Vitamin D3, 2000 units p.o. daily. 9. Slow-Mag 120 mg p.o. daily. 10. Centrum Silver 1 tablet p.o. daily. 11. Tocopheryl (vitamin E) 400 mg p.o. daily. 12. Lipitor 40 mg p.o. at bedtime. 13. Fish oil 200 mg p.o. daily. 14. Aldactone 25 mg p.o. daily. 15. Neurontin 200 mg p.o. t.i.d. 16. Cozaar 50 mg p.o. b.i.d. 17. Lopressor 100 mg p.o. b.i.d. 18. Naproxen 250 mg p.o. b.i.d. for 7 days. 19. Minipress 2 mg p.o. t.i.d. 20. Silvadene cream topically to the lower extremity b.i.d. DISPOSITION: [facility]. Follow up with Dr. Hastings. LABS: CBC, BMP in 3 days. Discharge planning more than 35 minutes.
== END 2016-10-22 16:20 | DRG 74 ==
LOC: EC 20:00 → 6SEL 23:20 → 5MS5E 10-19 17:53 → OBSVTOIN 10-21 17:11
PROVIDERS: ADMIT Hospitalist; ATTEND Hospitalist
DX: E11.42 Type 2 diabetes mellitus with diabetic polyneuropathy (principal); I11.0 Hypertensive heart disease with heart failure; I50.9 Heart failure, unspecified; Z68.43 Body mass index [BMI] 50.0-59.9, adult; E66.01 Morbid (severe) obesity due to excess calories; I16.0 Hypertensive urgency; E78.5 Hyperlipidemia, unspecified; M19.91 Primary osteoarthritis, unspecified site; M79.89 Other specified soft tissue disorders; T42.6X5A Adverse effect of other antiepileptic and sedative-hypnotic drugs, initial encounter; T46.1X5A Adverse effect of calcium-channel blockers, initial encounter; F32.9 Major depressive disorder, single episode, unspecified; F41.9 Anxiety disorder, unspecified; M10.9 Gout, unspecified; G89.29 Other chronic pain; M54.9 Dorsalgia, unspecified; R26.2 Difficulty in walking, not elsewhere classified; I87.2 Venous insufficiency (chronic) (peripheral); Z90.710 Acquired absence of both cervix and uterus; Z83.3 Family history of diabetes mellitus; Z96.653 Presence of artificial knee joint, bilateral; Z79.82 Long term (current) use of aspirin; Z79.84 Long term (current) use of oral hypoglycemic drugs; Z79.899 Other long term (current) drug therapy; W19.XXXA Unspecified fall, initial encounter
CPT/HCPCS: 36415; 71020; 73502; 80048; 80053; 82550; 82553; 83036; 83735; 84484; 85025; 85610; 85730; 93005; 93306; 96360; 96361; 96372; 99285

== ENCOUNTER 2018-07-26 14:34 | Emergency (ER) | payer MEDICARE ==
--- NOTE | 2018-07-26 15:10 | ED ---
General Adult HPI - General Chief complaint: Syncope Stated complaint: Syncope Time Seen by Provider: 07/26/18 14:42 Source: patient, family, EMS, RN notes reviewed Mode of arrival: EMS Limitations: no limitations - History of Present Illness Initial comments: Patient is a pleasant 73-year-old female presenting to the emergency Department with complaints of syncopal episode. Episode occurred sometime around 2:15. Patient was trying to transfer to a chair when she passed out. Unclear how long patient was unresponsive for. No injury. Patient is unable to walk chronically secondary to neuropathy and chronic problems. Patient does have chronic leg weakness. At this time patient has complaints only of feeling drowsy and fatigued and having some slurred speech. Family does also noticed slurred speech. Patient notices no area of new weakness. Patient denies any headache. Patient denies confusion. - Related Data Home Medications Medication Instructions Recorded Confirmed Aspirin EC [Ecotrin Low Dose] 81 mg PO DAILY 02/06/16 07/26/18 Nateglinide [Starlix] 120 mg PO PC-SUPPER 02/06/16 07/26/18 metFORMIN HCL 1,000 mg PO AC-BID 02/06/16 07/26/18 Ascorbic Acid [Vitamin C] 500 mg PO DAILY 02/07/16 07/26/18 Magnesium Chloride [Slow-Mag] 128 mg PO DAILY 02/07/16 07/26/18 Multivit-Min/Iron/Folic/Lutein 1 each PO DAILY 02/07/16 07/26/18 [Centrum Silver Women Tablet] Vitamin E (Dl,Tocopheryl Acet) 400 mg PO DAILY@1700 02/07/16 07/26/18 [Vitamin E] Atorvastatin [Lipitor] 40 mg PO HS 10/17/16 07/26/18 Fish Oil/Dha/Epa [Fish Oil 1,200 1 cap PO DAILY 10/17/16 07/26/18 mg Fish Oil] Bisacodyl [Dulcolax] 10 mg RECTAL DAILY 07/26/18 07/26/18 Calcium Carbonate [Calcium] 600 mg PO DAILY 07/26/18 07/26/18 Chlorpheniramine/Dextromethorp 1 tab PO Q6H PRN 07/26/18 07/26/18 [Coricidin Hbp Cough & Cold Tab] Cholecalciferol (Vitamin D3) 4,000 unit PO DAILY 07/26/18 07/26/18 [Vitamin D3] Docusate [Colace] 100 mg PO BID@0800,1700 07/26/18 07/26/18 Gabapentin [Neurontin] 300 mg PO TID@0800,1400,2000 07/26/18 07/26/18 Hydrochlorothiazide [Hydrodiuril] 25 mg PO DAILY 07/26/18 07/26/18 INSULIN LISPRO (HumaLOG) [humaLOG] 32 unit SQ DAILY@0700 07/26/18 07/26/18 INSULIN LISPRO (humaLOG) [humaLOG] 8 unit SQ DAILY@1100 07/26/18 07/26/18 INSULIN LISPRO (humaLOG) [humaLOG] 24 unit SQ DAILY@1730 07/26/18 07/26/18 Ibuprofen [Motrin Ib] 400 mg PO Q12HR 07/26/18 07/26/18 Insulin Glargine [Lantus] 55 unit SQ DAILY@2130 07/26/18 07/26/18 Liraglutide [Victoza 2-Aguila] 1.2 mg SQ DAILY@0700 07/26/18 07/26/18 Magnesium Hydroxide [Milk of 7,200 mg PO DIRECTED PRN 07/26/18 07/26/18 Magnesia Concentrate] Menthol [Biofreeze] 1 applicate TOPICAL Q8H PRN 07/26/18 07/26/18 Metoprolol Tartrate [Lopressor] 100 mg PO BID@0800,1700 07/26/18 07/26/18 Na Phos,M-B/Na Phos,Di-Ba [Fleet 133 ml RECTAL DAILY PRN 07/26/18 07/26/18 Adult] Nystatin 1 applic TOPICAL BID 07/26/18 07/26/18 Prazosin HCl 2 mg PO TID@0600,1400,2100 07/26/18 07/26/18 Spironolactone [Aldactone] 12.5 mg PO DAILY 07/26/18 07/26/18 Ubidecarenone [Co Q-10] 100 mg PO DAILY 07/26/18 07/26/18 amLODIPine [Norvasc] 10 mg PO DAILY 07/26/18 07/26/18 diphenhydrAMINE [Benadryl] 25 mg PO TID PRN 07/26/18 07/26/18 Previous Rx's Medication Instructions Recorded Losartan [Cozaar] 50 mg PO BID #0 10/22/16 Allergies Allergy/AdvReac Type Severity Reaction Status Date / Time No Known Allergies Allergy Verified 07/26/18 17:29 Review of Systems ROS Statement: Those systems with pertinent positive or pertinent negative responses have been documented in the HPI. ROS Other: All systems not noted in ROS Statement are negative. Constitutional: Denies: fever Eyes: Denies: eye pain ENT: Denies: ear pain Respiratory: Denies: cough, dyspnea Cardiovascular: Denies: chest pain Endocrine: Denies: fatigue Gastrointestinal: Denies: abdominal pain Genitourinary: Denies: dysuria Musculoskeletal: Denies: back pain Skin: Denies: rash Neurological: Reports: as per HPI. Denies: headache, weakness, confusion Past Medical History Past Medical History: Diabetes Mellitus, Hyperlipidemia, Hypertension, Osteoarthritis (OA) Additional Past Medical History / Comment(s): neuropathy/FEET, gout lt ankle, chronic back pain, lt rotator cuff tear,recent lt ankle strain. History of Any Multi-Drug Resistant Organisms: None Reported Past Surgical History: Hysterectomy, Joint Replacement, Tonsillectomy Additional Past Surgical History / Comment(s): bilateral knee replacement , hysterectomy- 5 pound benign stump tumor removed Past Anesthesia/Blood Transfusion Reactions: No Reported Reaction Past Psychological History: Anxiety, Depression Smoking Status: Never smoker Past Alcohol Use History: None Reported Past Drug Use History: None Reported - Past Family History Mother Family Medical History: Congestive Heart Failure (CHF), Coronary Artery Disease (CAD), Diabetes Mellitus Brother(s) Additional Family Medical History / Comment(s): at age 38-aneurysm Father Family Medical History: Coronary Artery Disease (CAD), Diabetes Mellitus, Renal Disease Additional Family Medical History / Comment(s): cabg General Exam Limitations: no limitations General appearance: other (Patient is slightly drowsy.) Head exam: Present: atraumatic, normocephalic Eye exam: Present: normal appearance, PERRL, EOMI. Absent: nystagmus ENT exam: Present: normal oropharynx Neck exam: Present: normal inspection Respiratory exam: Present: normal lung sounds bilaterally Cardiovascular Exam: Present: regular rate, normal rhythm GI/Abdominal exam: Present: soft. Absent: tenderness Extremities exam: Present: pedal edema. Absent: calf tenderness Neurological exam: Present: alert, oriented X3, CN II-XII intact Expanded Neurological exam: Present: protecting the airway, other (Patient does have mild slurred speech) Patient oriented to: Present: person, place, time Cranial nerves: EOM's Intact: Normal, Facial Sensation: Normal Sensory exam: Upper Extremity Light Touch: Normal, Lower Extremity Light Touch: Normal Motor strength exam: RUE: 5, LUE: 5, RLE: 2/1 (Patient and family state chronic) , LLE: 2/1 (Patient and family state chronic) Eye Response: (4) open spontaneously Motor Response: (6) obeys commands Verbal Response: (5) oriented Psychiatric exam: Present: normal affect, normal mood Skin exam: Present: normal color Course Vital Signs 07/26/18 07/26/18 07/26/18 14:54 15:14 16:05 Temperature 97.7 F 98.5 F Pulse Rate 67 70 71 Respiratory 18 18 22 Rate Blood Pressure 134/70 140/73 184/86 O2 Sat by Pulse 93 L 94 L 92 L Oximetry 07/26/18 07/26/18 16:32 19:16 Temperature Pulse Rate 64 60 Respiratory 18 18 Rate Blood Pressure 140/87 144/68 O2 Sat by Pulse 93 L 99 Oximetry - Reevaluation(s) Reevaluation #1: 07/26/18 16:25 Computed tomography scan was limited by patient complaints. Patient was provided Ativan. Following computed tomography scan patient did become very drowsy. Pulse ox 91%. Patient given 0.20 flumazenil. Patient reevaluated with pulse ox 93%. flumazenil ordered again. 07/26/18 16:51 Patient reevaluated. Patient is starting to have some improvement following 0.80 flumazenil. Family updated with results to this point and recommendation for transfer. [facility] did call back earlier and stated patient was not a TPA candidate 07/26/18 20:12 CT angiogram of the brain also reveals no acute abnormality. Blood gas shows significant CO2 retention. Patient was placed on BiPAP. Patient was slow to respond to BiPAP. After approximately an hour and a half patient has significantly improved and is now alert and oriented 3 again. We had considered possibly intubating the patient prior to that. Consideration is also made for pulmonary embolism. Computed tomography scan of the chest angiogram cannot be done at this point secondary to patient earlier receiving computed tomography scan with contrast for stroke protocol. After discussing with family is agreed upon at this time to cover patient with heparin prior to transfer for possible pulmonary embolism. Patient will benefit from VQ scan or pulmonary consult or future computed tomography scan to further address this. 07/26/18 20:16 Case was discussed with Dr. Ortiz at [facility], who will accept transfer. EKG Findings - EKG Comments: EKG Findings:: Normal sinus rhythm 71. TN 172. QRS 104. QT 402. QTC 436. Normal axis. Normal QRS. No acute ST change. Medical Decision Making - Lab Data Result diagrams: 07/26/18 15:12 07/26/18 15:12 Lab Results 07/26/18 07/26/18 07/26/18 Range/Units 15:12 15:12 15:12 WBC 6.4 (3.8-10.6) k/uL RBC 3.70 L (3.80-5.40) m/uL Hgb 11.1 L (11.4-16.0) gm/dL Hct 36.6 (34.0-46.0) % MCV 99.0 (80.0-100.0) fL MCH 29.9 (25.0-35.0) pg MCHC 30.2 L (31.0-37.0) g/dL RDW 14.8 (11.5-15.5) % Plt Count 114 L (150-450) k/uL Neutrophils % 73 % Lymphocytes % 17 % Monocytes % 5 % Eosinophils % 3 % Basophils % 0 % Neutrophils # 4.7 (1.3-7.7) k/uL Lymphocytes # 1.1 (1.0-4.8) k/uL Monocytes # 0.4 (0-1.0) k/uL Eosinophils # 0.2 (0-0.7) k/uL Basophils # 0.0 (0-0.2) k/uL Hypochromasia Moderate Macrocytosis Slight PT (9.0-12.0) sec INR (<1.2) APTT (22.0-30.0) sec Sample Site ABG pH (7.35-7.45) ABG pCO2 (35-45) mmHg ABG pO2 (83-108) mmHg ABG HCO3 (21-25) mmol/L ABG Total CO2 (19-24) mmol/L ABG O2 Saturation (94-97) % ABG Base Excess mmol/L Baljit Test FiO2 % Sodium 142 (137-145) mmol/L Potassium 4.2 (3.5-5.1) mmol/L Chloride 100 (98-107) mmol/L Carbon Dioxide 37 H (22-30) mmol/L Anion Gap 5 mmol/L BUN 29 H (7-17) mg/dL Creatinine 0.56 (0.52-1.04) mg/dL Est GFR (CKD-EPI)AfAm >90 (>60 ml/min/1.73 sqM) Est GFR (CKD-EPI)NonAf >90 (>60 ml/min/1.73 sqM) Glucose 85 (74-99) mg/dL Calcium 10.3 H (8.4-10.2) mg/dL Total Bilirubin 0.3 (0.2-1.3) mg/dL AST 40 H (14-36) U/L ALT 56 H (9-52) U/L Alkaline Phosphatase 58 (38-126) U/L Total Creatine Kinase 61 (30-135) U/L CK-MB (CK-2) 1.7 (0.0-2.4) ng/mL CK-MB (CK-2) Rel Index 2.8 Troponin I 0.014 (0.000-0.034) ng/mL NT-Pro-B Natriuret Pep pg/mL Total Protein 6.3 (6.3-8.2) g/dL Albumin 3.5 (3.5-5.0) g/dL 07/26/18 07/26/18 07/26/18 Range/Units 16:30 17:34 18:17 WBC (3.8-10.6) k/uL RBC (3.80-5.40) m/uL Hgb (11.4-16.0) gm/dL Hct (34.0-46.0) % MCV (80.0-100.0) fL MCH (25.0-35.0) pg MCHC (31.0-37.0) g/dL RDW (11.5-15.5) % Plt Count (150-450) k/uL Neutrophils % % Lymphocytes % % Monocytes % % Eosinophils % % Basophils % % Neutrophils # (1.3-7.7) k/uL Lymphocytes # (1.0-4.8) k/uL Monocytes # (0-1.0) k/uL Eosinophils # (0-0.7) k/uL Basophils # (0-0.2) k/uL Hypochromasia Macrocytosis PT 10.3 (9.0-12.0) sec INR 1.0 (<1.2) APTT 21.2 L (22.0-30.0) sec Sample Site r rad ABG pH 7.27 L (7.35-7.45) ABG pCO2 88 H* (35-45) mmHg ABG pO2 83 (83-108) mmHg ABG HCO3 40 H* (21-25) mmol/L ABG Total CO2 43 H (19-24) mmol/L ABG O2 Saturation 95.7 (94-97) % ABG Base Excess 13.4 mmol/L Baljit Test Yes FiO2 44 % Sodium (137-145) mmol/L Potassium (3.5-5.1) mmol/L Chloride (98-107) mmol/L Carbon Dioxide (22-30) mmol/L Anion Gap mmol/L BUN (7-17) mg/dL Creatinine (0.52-1.04) mg/dL Est GFR (CKD-EPI)AfAm (>60 ml/min/1.73 sqM) Est GFR (CKD-EPI)NonAf (>60 ml/min/1.73 sqM) Glucose (74-99) mg/dL Calcium (8.4-10.2) mg/dL Total Bilirubin (0.2-1.3) mg/dL AST (14-36) U/L ALT (9-52) U/L Alkaline Phosphatase (38-126) U/L Total Creatine Kinase (30-135) U/L CK-MB (CK-2) (0.0-2.4) ng/mL CK-MB (CK-2) Rel Index Troponin I (0.000-0.034) ng/mL NT-Pro-B Natriuret Pep 107 pg/mL Total Protein (6.3-8.2) g/dL Albumin (3.5-5.0) g/dL - Radiology Data Radiology results: report reviewed (Computed tomography scan of the brain shows mild motion artifact. No acute intercranial abdomen Kartik.), image reviewed ( Chest x-ray is limited, cardiomegaly.) Critical Care Time Critical Care Time: Yes Total Critical Care Time: 35 Disposition Clinical Impression: Syncope, Hypercarbia Disposition: OTHER INSTITUTION NOT DEFINED Condition: Serious Is patient prescribed a controlled substance at d/c from ED?: No Referrals: Lawrence Hastings MD [Primary Care Provider] - 1-2 days Time of Disposition: 20:16 - Out of Hospital Transfer - Req. Specs Out of Hospital Transfer - Requested Specifics: Other Emergency Center
[2018-07-26] MEDS ORDERED: LORazepam 2 MG/ML INJ IV STA (15:35)
[2018-07-26] MEDS ORDERED: FLUMAZENIL 0.1 MG/ML 5 ML VIAL IVP STA ×2 (16:07→16:24)
--- NOTE | 2018-07-26 16:16 | CT ---
EXAMINATION TYPE: CT brain wo con for TPA DATE OF EXAM: 07/26/2018 COMPARISON: 02/06/2016 HISTORY: 73 year-old female neurologic deficits, weakness, code stroke. TECHNIQUE: Examination was done in axial plane without intravenous contrast. Coronal and sagittal r econstructions performed. CT DLP: 1841 mGycm Automated exposure control for dose reduction was used. FINDINGS: Mild generalized motion artifacts. Within this limitation, there is no evidence of acute intracrania l hemorrhage, acute ischemic changes, mass, mass-effect, or extra-axial fluid collection. There is n o effacement of cerebral sulci or basal subarachnoid cisterns. There is no hydrocephalus. There is no midline shift. Villavicencio-white matter distinction is preserved. Partially empty sella noted. Rightward nasal septal deviation. Minimal trapped fluid within the inferior left mastoid air cells of questionable clinical significance. Patient's gaze is divergent suggesting underlying strabismus. IMPRESSION: Mild motion artifacts. No acute intracranial abnormality seen.
--- NOTE | 2018-07-26 16:23 | XR ---
EXAMINATION TYPE: XR chest 1V portable DATE OF EXAM: 07/26/2018 Comparison: 10/17/2016 Clinical History: 73-year-old female confusion, altered mental status Findings: Very low lung volumes crowding the vascular markings in limiting assessment. The heart appears enlarg ed. There is possible pulmonary vascular congestion. Lung bases are underpenetrated and suboptimally assessed. Impression: Very limited exam due to portable technique, patient body habitus, and prominent hypoventilatory mayberry ges. There is cardiomegaly. Unable to exclude mild CHF. Clinically correlate. Lung bases are underpen etrated and not well assessed.
[2018-07-26 16:25] LABS: Basophils % (A) 0 %; Eosinophils # (A) 0.2 k/uL (0-0.7); Eosinophils % (A) 3 %; HCT 36.6 % (34.0-46.0); HGB 11.1 gm/dL (11.4-16.0); Hypochromasia Moderate; Lymphocytes # (A) 1.1 k/uL (1.0-4.8); Lymphocytes % (A) 17 %; MCH 29.9 pg (25.0-35.0); MCHC 30.2 g/dL (31.0-37.0); Macrocytosis Slight; Mean Platelet Volume 7.9; Monocytes # (A) 0.4 k/uL (0-1.0); Monocytes % (A) 5 %; Neutrophils # (A) 4.7 k/uL (1.3-7.7); Neutrophils % (A) 73 %; Platelet Count 114 k/uL (150-450); RDW 14.8 % (11.5-15.5); WBC 6.4 k/uL (3.8-10.6)
[2018-07-26 16:31] LABS: ALT 56 U/L (9-52); AST 40 U/L (14-36); Albumin 3.5 g/dL (3.5-5.0); Alkaline Phosphatase 58 U/L (38-126); Anion Gap 5 mmol/L; Blood Urea Nitrogen 29 mg/dL (7-17); Calcium 10.3 mg/dL (8.4-10.2); Carbon Dioxide 37 mmol/L (22-30); Chloride 100 mmol/L (98-107); Glucose 85 mg/dL (74-99); Potassium 4.2 mmol/L (3.5-5.1); Sodium 142 mmol/L (137-145); Total Bilirubin 0.3 mg/dL (0.2-1.3); Total Protein 6.3 g/dL (6.3-8.2)
[2018-07-26 16:33] VITALS: RESP 18
[2018-07-26 16:52] VITALS: TEMP 98.5
[2018-07-26 16:59] LABS: Creatine Kinase MB 1.7 ng/mL (0.0-2.4); Troponin I 0.014 ng/mL (0.000-0.034)
--- NOTE | 2018-07-26 17:05 | CT ---
EXAMINATION TYPE: CT angio head neck DATE OF EXAM: 07/26/2018 HISTORY: code stroke COMPARISON: CT DLP: 606.9 mGycm. Automated Exposure Control for Dose Reduction was Utilized. TECHNIQUE: CTA scan of the neck is performed with IV Contrast, patient injected with 65 mL of Isovue 370, axial images are obtained, coronal and sagittal reformatted images are reviewed. Three-D recons tructed images are created on an independent workstation and reviewed. FINDINGS: The right and left carotid arterial systems are widely patent, without significant stenosis or dissection or aneurysm. Both demonstrate prominent tortuosity. The right and left vertebral arter ial systems are widely patent, without significant stenosis or dissection or aneurysm. The venous structures of the neck and the intracranial dural venous sinuses are unremarkable. There are no significant incidental neck or intracranial findings. IMPRESSION: No significant abnormality is seen.
[2018-07-26 17:40] LABS: ABG Base Excess 13.4 mmol/L; ABG Oxygen Saturation 95.7 % (94-97); ABG PH 7.27 (7.35-7.45); ABG PO2 83 mmHg (83-108); ABG TCO2 43 mmol/L (19-24)
[2018-07-26 17:42] LABS: ABG PCO2 88 mmHg (35-45)
[2018-07-26 17:43] LABS: ABG HCO3 40 mmol/L (21-25)
[2018-07-26 19:27] LABS: Prothrombin Time 10.3 sec (9.0-12.0)
[2018-07-26 19:43] LABS: Partial Thromboplastin Time 21.2 sec (22.0-30.0)
[2018-07-26] MEDS ORDERED: HEPARIN SODIUM,PORCINE 5,000 UNIT/ML 1 ML VIAL IV PRN (20:17)
[2018-07-26] MEDS ORDERED: HEPARIN SODIUM,PORCINE 10,000 UNIT/ML 1 ML VIAL IV ONE (20:17)
[2018-07-26] MEDS ORDERED: HEPARIN SOD,PORK IN 0.45% NACL 25,000 UNIT in 0.45% NACL 1 250ML.BAG IV SCH (20:30)
[2018-07-26 20:52] VITALS: BP 142/82; PULSE 65
== END 2018-07-26 22:00 | disposition short-term general hospital (02) ==
LOC: EC 14:34
DX: R55 Syncope and collapse (principal); R06.89 Other abnormalities of breathing; R47.81 Slurred speech; R60.0 Localized edema; R53.83 Other fatigue; E78.5 Hyperlipidemia, unspecified; I10 Essential (primary) hypertension; E11.42 Type 2 diabetes mellitus with diabetic polyneuropathy; M10.9 Gout, unspecified; F41.9 Anxiety disorder, unspecified; Z79.1 Long term (current) use of non-steroidal anti-inflammatories (NSAID); Z79.4 Long term (current) use of insulin; Z79.82 Long term (current) use of aspirin; Z79.899 Other long term (current) drug therapy; Z96.653 Presence of artificial knee joint, bilateral
CPT/HCPCS: 99291; 96374; 96375 ×2; 36415; 94660; 36600; 93005; 83880; 80053; 82550; 82553; 82805; 84484; 85025; 85610; 85730; 71045; 70496; 70450; 70498; J2060; J1644 ×2; Q9967

== ENCOUNTER 2019-05-22 10:18 | Inpatient (IN) | payer MEDICARE ==
[2019-05-22] MEDS ORDERED: NALOXONE 0.4 MG/ML 1 ML VIAL IV PRN (13:37)
[2019-05-22] MEDS ORDERED: ACETAMINOPHEN IV (For NPO) 1,000 MG in EMPTY BAG 1 BAG IVPB ONE (13:37)
[2019-05-22] MEDS ORDERED: ARTIFICIAL TEARS-HYPROMELLOSE DROPS 15 ML BTL BOTH EYES PRN (13:37)
[2019-05-22 13:45] VITALS: BMI 55.1
[2019-05-22] MEDS ORDERED: SODIUM CHLORIDE 0.9% 1,000 ML IV SCH (13:45)
[2019-05-22 13:53] LABS: Glucose,Whole Blood 155 mg/dL (75-99)
--- NOTE | 2019-05-22 14:03 | XR ---
EXAMINATION TYPE: XR chest 1V portable DATE OF EXAM: 05/22/2019 COMPARISON: 07/26/2018 HISTORY: Cardiac arrest. Intubation. TECHNIQUE: Single frontal view of the chest is obtained. FINDINGS: Endotracheal tube and enteric tube have been inserted. Endotracheal tube appears appropria tely placed terminating near the aortic arch. Enteric tube terminates off the distal [id number], a lso appropriately placed. No sizable pneumothorax seen. Increased interstitial lung markings througho ut with low lung volumes. Haziness at the costophrenic angles and in the retrocardiac airspace. Cardi a mediastinal silhouette is enlarged. IMPRESSION: Appropriately placed enteric and endotracheal tubes. Patchy bibasilar airspace disease m ay relate to pulmonary edema. Enlarged cardiomediastinal silhouette.
[2019-05-22] MEDS ORDERED: ACETAMINOPHEN ORAL SUSP 160 MG/5 ML CUP PO PRN (14:09)
[2019-05-22] MEDS: NOREPINEPHRINE 8 MG in SODIUM CHLORIDE 0.9% 250 ML IV SCH (15:12)
[2019-05-22] MEDS: FUROSEMIDE 10 MG/ML 4 ML VIAL IV SCH ×2 (15:16→23:48)
[2019-05-22] MEDS: PIPERACILLIN-TAZOBACTAM 3.375 GM in SODIUM CHLORIDE 0.9% 100 ML IVPB SCH ×2 (15:17→23:50)
[2019-05-22] MEDS: IPRATROPIUM-ALBUTEROL 3 ML NEB INHALATION SCH ×3 (15:18→22:56)
[2019-05-22 15:38] LABS: Appearance,Urine Clear (Clear); Bilirubin,Urine Negative (Negative); Blood,Urine Moderate (Negative); Color,Urine Light Yellow; Glucose,Urine (UA) Negative (Negative); Hyaline Casts,Urine 6 /lpf (0-2); Ketones,Urine Negative (Negative); Leukocyte Esterase,Urine Negative (Negative); Mucus,Urine Rare /hpf; Nitrite,Urine Negative (Negative); Protein,Urine Negative (Negative); RBC,Urine 52 /hpf (0-5); Specific Gravity,Urine 1.016 (1.001-1.035); Squamous Epithelial Cell,Urine <1 /hpf (0-4); Urobilinogen,Urine <2.0 mg/dL (<2.0)
--- NOTE | 2019-05-22 16:05 | EEG ---
ELECTROENCEPHALOGRAM REPORT DATE OF SERVICE: 05/22/2019. PREAMBLE: This is a 74-year-old female transferred from [facility] after having a cardiac arrest. The patient is on the ventilator with no sedation. Minimal neural response. This study is performed for electrocerebral activity. EEG FINDINGS: A routine 21-channel awake digital EEG recording was accomplished utilizing the 10/20 international system with bipolar and referential montages. The recording starts and continues with presence of low-voltage activity with excessive myogenic activity seen throughout the recording. Different stages of sleep were not seen. Photic driving response was not seen. No focal or generalized epileptiform activity was seen. IMPRESSION: This is a limited EEG due to presence of excessive myogenic activity during most of this recording. Otherwise, the study reveals background slowing consistent with toxic metabolic encephalopathy or due to diffuse structural brain abnormality. Clinical correlation is recommended. No epileptiform activity was seen. MMODL / IJN: [id number] / MTDD
--- NOTE | 2019-05-22 16:33 | P.CNNES ---
History of Present Illness Consult date: 05/22/19 Requesting physician: Lauren Jackson Reason for Consult: Cardiac arrest History of Present Illness: Patient is a 74-year-old female, who is a resident of [facility], was transferred to [facility] arrived there at 5:36 PM, after she had a cardiac arrest. Patient was found unresponsive by the staff. CPR was initiated, and continued when EMS arrived. Downtime is unknown, although somewhere between 10-20 minutes. Patient was transferred from [facility]. Patient is intubated, unresponsive to calling her name. Patient does have brainstem activity as mentioned below. Patient has history of chronic lumbar radiculopathy, osteoarthritis, peripheral neuropathy, morbid obesity, peripheral edema, essential hypertension, hyperlipidemia, gout, diabetes type 2, anxiety and depression. Patient has been out or in a wheelchair at least for last 3 years. Review of medical records from [facility] revealed patient had CT head without contrast from 05/21/2019 at 8:31 PM revealed loss of the sulci for the patient's age. There would be typically be some mild atrophy and visible sulci but appearance is consistent with some diffuse cerebral edema. No hemorrhage. CT of the chest negative for pulmonary embolism. Severe pulmonary edema, cardiomegaly. Patient's AST is elevated 108, ALT 69 troponin is negative. CBC normal. Sodium 145 potassium 4.8 BUN 26, creatinine 0.90. UA is negative. Review of Systems ROS unobtainable: due to endotracheal tube, due to mental status Past Medical History Past Medical History: Atrial Fibrillation, Diabetes Mellitus, Hyperlipidemia, Hypertension, Osteoarthritis (OA) Additional Past Medical History / Comment(s): Depression, Anxiety, Morbid Obesity, neuropathy/FEET, gout lt ankle,chronic back pain, lt rotator cuff tear,recent lt ankle strain. History of Any Multi-Drug Resistant Organisms: None Reported Past Surgical History: Hysterectomy, Joint Replacement, Tonsillectomy Additional Past Surgical History / Comment(s): bilateral knee replacement , hysterectomy- 5 pound benign stump tumor removed Past Anesthesia/Blood Transfusion Reactions: No Reported Reaction Past Psychological History: Anxiety, Depression Additional Psychological History / Comment(s): pt lives with her sig other of 19 years-luis fernando. pt stated recently was hospitalized at [facility] for the same thing she is coming in with on 02-06-16. pt had just gotten out of rehab at [facility] today ,went home and was to weak to get herself to bathroom and fell. Smoking Status: Unknown if ever smoked Past Alcohol Use History: None Reported Past Drug Use History: None Reported - Past Family History Mother Family Medical History: Congestive Heart Failure (CHF), Coronary Artery Disease (CAD), Diabetes Mellitus Brother(s) Additional Family Medical History / Comment(s): at age 38-aneurysm Father Family Medical History: Coronary Artery Disease (CAD), Diabetes Mellitus, Renal Disease Additional Family Medical History / Comment(s): cabg Medications and Allergies Home Medications Medication Instructions Recorded Confirmed Type Aspirin EC [Ecotrin Low Dose] 81 mg PO DAILY@1700 02/06/16 05/22/19 History Nateglinide [Starlix] 120 mg PO DAILY@0800 02/06/16 05/22/19 History metFORMIN HCL 1,000 mg PO BID@0800,1700 02/06/16 05/22/19 History Ascorbic Acid [Vitamin C] 500 mg PO DAILY@17002/07/16 05/22/19 History Magnesium Chloride [Slow-Mag] 128 mg PO DAILY@1700 02/07/16 05/22/19 History Multivit-Min/Iron/Folic/Lutein 1 tab PO DAILY@1700 02/07/16 05/22/19 History [Centrum Silver Women Tablet] Atorvastatin [Lipitor] 40 mg PO HS@2100 10/17/16 05/22/19 History Bisacodyl [Dulcolax] 10 mg RECTAL DAILY PRN 07/26/18 05/22/19 History Calcium Carbonate [Calcium] 600 mg PO DAILY@0600 07/26/18 05/22/19 History Chlorpheniramine/Dextromethorp 1 tab PO Q6H PRN 07/26/18 05/22/19 History [Coricidin Hbp Cough & Cold Tab] Docusate [Colace] 100 mg PO BID@0800,1700 07/26/18 05/22/19 History Gabapentin [Neurontin] 200 mg PO BID@0600,1400 07/26/18 05/22/19 History Hydrochlorothiazide [Hydrodiuril] 25 mg PO DAILY@0800 07/26/18 05/22/19 History INSULIN LISPRO (HumaLOG) [humaLOG] 32 unit SQ DAILY@0700 07/26/18 05/22/19 History INSULIN LISPRO (humaLOG) [humaLOG] 8 unit SQ DAILY@1100 07/26/18 05/22/19 History INSULIN LISPRO (humaLOG) [humaLOG] 24 unit SQ DAILY@1630 07/26/18 05/22/19 History Ibuprofen [Motrin Ib] 400 mg PO Q12H PRN 07/26/18 05/22/19 History Liraglutide [Victoza 2-Aguila] 1.2 mg SQ DAILY@0700 07/26/18 05/22/19 History Magnesium Hydroxide [Milk of 7,200 mg PO DIRECTED PRN 07/26/18 05/22/19 History Magnesia Concentrate] Metoprolol Tartrate [Lopressor] 100 mg PO BID@0800,1700 07/26/18 05/22/19 History Na Phos,M-B/Na Phos,Di-Ba [Fleet 133 ml RECTAL DAILY PRN 07/26/18 05/22/19 History Adult] Prazosin HCl 2 mg PO TID@0600,1400,2100 07/26/18 05/22/19 History Spironolactone [Aldactone] 12.5 mg PO DAILY@0800 07/26/18 05/22/19 History amLODIPine [Norvasc] 10 mg PO DAILY@0800 07/26/18 05/22/19 History Albuterol Nebulized [Ventolin 2.5 mg INHALATION RT-Q4H PRN 05/22/19 05/22/19 History Nebulized] Cholecalciferol [Vitamin D3 (25 4,000 unit PO DAILY@1700 05/22/19 05/22/19 History Mcg = 1000 Iu)] Eucerin Cream 1 applic TOPICAL TID 05/22/19 05/22/19 History Gabapentin [Neurontin] 300 mg PO HS@209905/22/19 05/22/19 History Insulin Detemir (Levemir) [Levemir] 50 unit SQ HS@209905/22/19 05/22/19 History Losartan [Cozaar] 50 mg PO BID@0800,2100 05/22/19 05/22/19 History [place]-3 Capsule(Unknown Dose) 1 cap PO DAILY@1700 05/22/19 05/22/19 History SILVER sulfADIAZINE Cream 1 applic TOPICAL DAILY 05/22/19 05/22/19 History [Silvadene 1% Cream] Allergies Allergy/AdvReac Type Severity Reaction Status Date / Time No Known Allergies Allergy Verified 05/22/19 15:14 Physical Examination - Vital Signs Vital Signs: Vital Signs Temp Pulse Resp BP BP Pulse Ox 05/22/19 15:32 75 26 H 05/22/19 15:30 62 26 H 173/99 99 05/22/19 15:19 78 26 H 05/22/19 15:00 64 27 H 164/84 99 05/22/19 14:30 67 26 H 162/89 100 05/22/19 14:00 79 21 144/72 97 05/22/19 13:30 66 24 172/53 96 05/22/19 13:00 70 20 172/73 98 05/22/19 12:15 99.3 F 24 158/72 98 Intake and Output 05/22/19 05/22/19 05/22/19 06:59 14:59 22:59 Intake Total 150 10 Output Total 450 150 Balance -300 -140 Intake: IV 150 10 0.9 150 10 Output: Urine 450 150 Other: Weight 159.8 kg On examination patient is an elderly female, who is intubated. Patient is not on any sedation. Patient is breathing slightly over the ventilator, also has mild gag and cough as per nursing report. Patient's pupils are about 4-5 mm, reacting to 3-4 mm bilaterally. Oculocephalics are not clearly present. Corneas are definitely present. Patient frequently bites on the ET tube. Her eyelids are closed, but sometimes she blinks on top of closed eyes. No definitive seizure activity noticed. Tone is increased. Patient has severe peripheral edema. Patient has bilateral Babinski. Results - Laboratory Findings Abnormal Lab Findings: Abnormal Labs 05/22/19 05/22/19 12:12 13:37 POC Glucose (mg/dL) 155 H Urine Blood Moderate H Urine RBC 52 H Hyaline Casts 6 H Urine Mucus Rare H Assessment and Plan Assessment: * Status post cardiac arrest with unclear downtime, somewhere between 10-20 minutes. Patient at present is encephalopathic, unresponsive, but does have brainstem activity. * Multiple medical conditions as listed above. * Wheelchair-bound due to peripheral neuropathy, osteoarthritis, obesity. Plan: * Continue present management. * EEG was performed, which was technically limited due to excessive myogenic activity. It did show background slowing. No epileptiform activity was seen. * We will reassess patient in the morning. * Discussed with patient's family in detail.
[2019-05-22 17:51] LABS: Basophils % (A) 0 %; Eosinophils % (A) 0 %; HCT 35.9 % (34.0-46.0); HGB 11.3 gm/dL (11.4-16.0); Hypochromasia Moderate; Lymphocytes # (A) 0.7 k/uL (1.0-4.8); Lymphocytes % (A) 8 %; MCH 30.4 pg (25.0-35.0); MCHC 31.4 g/dL (31.0-37.0); MCV 96.7 fL (80.0-100.0); Mean Platelet Volume 7.1; Monocytes # (A) 0.4 k/uL (0-1.0); Monocytes % (A) 4 %; Neutrophils # (A) 7.9 k/uL (1.3-7.7); Neutrophils % (A) 87 %; Platelet Count 114 k/uL (150-450); RBC 3.71 m/uL (3.80-5.40); RDW 14.6 % (11.5-15.5); WBC 9.1 k/uL (3.8-10.6)
[2019-05-22 17:57] LABS: Glucose,Whole Blood 185 mg/dL (75-99)
[2019-05-22 18:01] LABS: African American GFR (CKD) >90 (>60 ml/min/1.73 sqM); Anion Gap 10 mmol/L; Blood Urea Nitrogen 32 mg/dL (7-17); Calcium 10.2 mg/dL (8.4-10.2); Carbon Dioxide 37 mmol/L (22-30); Chloride 96 mmol/L (98-107); Glucose 181 mg/dL (74-99); Non-African American GFR(CKD) 87 (>60 ml/min/1.73 sqM); Potassium 3.7 mmol/L (3.5-5.1); Sodium 143 mmol/L (137-145)
[2019-05-22] MEDS: HYDROmorphone 1 MG/ML 1 ML SYRINGE IVP PRN (19:18)
[2019-05-22] MEDS: LOSARTAN 50 MG TAB PO SCH (20:03)
[2019-05-22 20:19] LABS: Glucose,Whole Blood 206 mg/dL (75-99)
[2019-05-22] MEDS: levETIRAcetam IV 500 MG in SODIUM CHLORIDE 0.9% 100 ML IVPB SCH (20:56)
[2019-05-22] MEDS ORDERED: INSULIN DETEMIR (LEVEMIR) 100 UNIT/ML SYR SQ SCH (21:00)
[2019-05-22] MEDS ORDERED: GABAPENTIN 300 MG CAP PO SCH (21:00)
[2019-05-22] MEDS ORDERED: PROPOFOL 1,000 MG in EMPTY BAG 1 BAG IV SCH (21:00)
[2019-05-22] MEDS ORDERED: ATORVASTATIN 40 MG TAB PO SCH (21:00)
[2019-05-22] MEDS: CHLORHEXIDINE GLUCONATE 15 ML CUP MUCOUS MEM SCH (21:05)
[2019-05-23 00:07] LABS: Glucose,Whole Blood 195 mg/dL (75-99)
[2019-05-23] MEDS: IPRATROPIUM-ALBUTEROL 3 ML NEB INHALATION SCH ×2 (02:31→08:37)
[2019-05-23 04:28] LABS: Basophils % (A) 0 %; Eosinophils % (A) 0 %; HCT 33.4 % (34.0-46.0); HGB 10.7 gm/dL (11.4-16.0); Hypochromasia Slight; Lymphocytes % (A) 11 %; MCH 30.2 pg (25.0-35.0); MCV 94.4 fL (80.0-100.0); Mean Platelet Volume 7.8; Monocytes # (A) 0.7 k/uL (0-1.0); Monocytes % (A) 7 %; Neutrophils % (A) 81 %; Platelet Count 130 k/uL (150-450); RBC 3.54 m/uL (3.80-5.40); RDW 14.9 % (11.5-15.5); WBC 9.8 k/uL (3.8-10.6)
[2019-05-23] MEDS: HYDROmorphone 1 MG/ML 1 ML SYRINGE IVP PRN (04:31)
[2019-05-23 04:36] LABS: Calcium 10.1 mg/dL (8.4-10.2); Potassium 2.9 mmol/L (3.5-5.1)
[2019-05-23 05:05] LABS: ABG Base Excess 19.8 mmol/L; ABG Oxygen Saturation 97.9 % (94-97); ABG PCO2 37 mmHg (35-45); ABG PO2 85 mmHg (83-108); ABG TCO2 42 mmol/L (19-24); Allen Test Performed? Yes
[2019-05-23 05:09] LABS: ABG HCO3 41 mmol/L (21-25); ABG PH 7.65 (7.35-7.45)
[2019-05-23] MEDS ORDERED: GABAPENTIN 100 MG CAP PO SCH (06:00)
[2019-05-23 06:17] LABS: Glucose,Whole Blood 195 mg/dL (75-99)
--- NOTE | 2019-05-23 07:45 | XR ---
EXAMINATION TYPE: XR chest 1V portable DATE OF EXAM: 05/23/2019 COMPARISON: 05/22/2019 HISTORY: Ventilatory dependent respiratory failure. TECHNIQUE: Single frontal view of the chest is obtained. FINDINGS: There is slight right hemidiaphragm elevation as seen on the prior. Overall there is impro saumya aeration of the lungs however bibasilar opacities do remain. Enteric tube, endotracheal tube, and right internal jugular central venous catheter are similar in position. No acute osseous pathology. Trace left pleural effusion suspected. IMPRESSION: Overall improved aeration the lungs however bibasilar opacities and suspected trace left pleural effusion do remain.
[2019-05-23] MEDS ORDERED: METOPROLOL TARTRATE 50 MG TAB PO SCH (08:00)
[2019-05-23 08:26] VITALS: TEMP 98.8
[2019-05-23] MEDS: NOREPINEPHRINE 8 MG in SODIUM CHLORIDE 0.9% 250 ML IV SCH (08:37)
[2019-05-23] MEDS: PIPERACILLIN-TAZOBACTAM 3.375 GM in SODIUM CHLORIDE 0.9% 100 ML IVPB SCH ×2 (08:41→08:42)
[2019-05-23] MEDS: FUROSEMIDE 10 MG/ML 4 ML VIAL IV SCH (08:41)
[2019-05-23] MEDS: levETIRAcetam IV 500 MG in SODIUM CHLORIDE 0.9% 100 ML IVPB SCH (08:42)
[2019-05-23] MEDS: LOSARTAN 50 MG TAB PO SCH (08:43)
--- NOTE | 2019-05-23 08:55 | P.CNPUL ---
History of Present Illness Consult date: 05/23/19 Requesting physician: Raymond Obrien Chief complaint: Cardiac arrest History of present illness: This is 74-year-old female patient of Dr. Hastings, a resident of a senior care, with past medical history of hypertension, hyperlipidemia, morbid obesity, osteoarthritis, gait dysfunction, and patient was wheelchair-bound, diabetes mellitus type 2 with peripheral neuropathy, lumbar region radiating neuropathy, anxiety, depression, and gout. Patient suffered a cardiac arrest at the senior care, she was found unresponsive, initially she had a pulse and became pulseless, CPR was started, EMS arrived patient was found to be in asystole. She received epinephrine, there was return of spontaneous circulation, unclear about the duration of the down time. In the ED at [facility] CT scan of the brain showed some diffuse cerebral edema without any evidence of hemorrhage. Patient was intubated and placed on mechanical ventilator. She remains unresponsive without any sedation. Blood work from [facility] shows white blood cell count of 12.5, hemoglobin of 12.1, sodium of 145, potassium is 4.8, chloride is 103, CO2 34, B1 is 26, creatinine is 0.9, glucose was elevated at 323, urinalysis revealed 3+ glucose and 3+ protein, but no sign of infection. Initial blood gas showed pO2 of 178, pCO2 of 83, pH is 7.12, and this was done on assist-control mode of ventilation with a rate of 16, tidal in the 500, FiO2 of 100 and PEEP of 5, lactic acid was elevated at 10, patient was fluid resuscitated and received a total of [address] angiogram of the chest showed extensive pulmonary airspace edema, cardiomegaly, no evidence of pulmonary embolism, no sign of mediastinal adenopathy, no significant pleural fluid. Echocardiogram was completed at [facility] and the results are not available to us. EKG showed sinus rhythm with left bundle branch block. Patient was then transferred to [facility], because there is no neurology coverage at the [facility]. Patient arrived on 05/22/2019 to [facility] ICU. She remained unresponsive, she remains intubated, current vent settings are assist control mode of ventilation with a rate of 26, tidal volume is 470, FiO2 of 50%, and PEEP of 8. This morning's blood gas shows pO2 of 85, pCO2 of 37, and pH of 7.65. Chest x-ray showed patchy bibasilar airspace disease, likely related to pulmonary edema, enlarged cardiomediastinal silhouette, and appropriately placed endotracheal tube, OG tube. Patient has been evaluated by neurology, was found to have brain stem activity, pupils are 4 mm and reactive, corneal reflex present, patient has been noted to have sucking motion in the ET tube at times bites down on it, she has a left upward gaze at times, and she has bilateral Babinski. EEG was technically limited related to excessive myogenic activity, with background slowing no epileptiform activity was seen. Review of Systems ROS unobtainable: due to endotracheal tube, due to mental status All systems: negative Constitutional: Denies chills, Denies fever Eyes: denies blurred vision, denies pain Ears, nose, mouth and throat: Denies headache, Denies sore throat Cardiovascular: Denies chest pain, Denies shortness of breath Respiratory: Denies cough Gastrointestinal: Denies abdominal pain, Denies diarrhea, Denies nausea, Denies vomiting Genitourinary: Denies dysuria, Denies hematuria Musculoskeletal: Denies myalgias Integumentary: Denies pruritus, Denies rash Neurological: Reports balance difficulties, Reports change in mentation, Reports gait dysfunction, Denies numbness, Denies weakness Psychiatric: Denies anxiety, Denies depression Endocrine: Denies fatigue, Denies weight change Past Medical History Past Medical History: Atrial Fibrillation, Diabetes Mellitus, Hyperlipidemia, Hypertension, Osteoarthritis (OA) Additional Past Medical History / Comment(s): Depression, Anxiety, Morbid Obesity, neuropathy/FEET, gout lt ankle,chronic back pain, lt rotator cuff tear,recent lt ankle strain. History of Any Multi-Drug Resistant Organisms: None Reported Past Surgical History: Hysterectomy, Joint Replacement, Tonsillectomy Additional Past Surgical History / Comment(s): bilateral knee replacement , hysterectomy- 5 pound benign stump tumor removed Past Anesthesia/Blood Transfusion Reactions: No Reported Reaction Past Psychological History: Anxiety, Depression Additional Psychological History / Comment(s): pt lives with her sig other of 19 years-[place]. pt stated recently was hospitalized at [facility] for the same thing she is coming in with on 02-06-16. pt had just gotten out of rehab at [facility] today ,went home and was to weak to get herself to bathroom and fell. Smoking Status: Unknown if ever smoked Past Alcohol Use History: None Reported Past Drug Use History: None Reported - Past Family History Mother Family Medical History: Congestive Heart Failure (CHF), Coronary Artery Disease (CAD), Diabetes Mellitus Brother(s) Additional Family Medical History / Comment(s): at age 38-aneurysm Father Family Medical History: Coronary Artery Disease (CAD), Diabetes Mellitus, Renal Disease Additional Family Medical History / Comment(s): cabg Medications and Allergies Home Medications Medication Instructions Recorded Confirmed Type Aspirin EC [Ecotrin Low Dose] 81 mg PO DAILY@1700 02/06/16 05/22/19 History Nateglinide [Starlix] 120 mg PO DAILY@0800 02/06/16 05/22/19 History metFORMIN HCL 1,000 mg PO BID@0800,1700 02/06/16 05/22/19 History Ascorbic Acid [Vitamin C] 500 mg PO DAILY@1700 02/07/16 05/22/19 History Magnesium Chloride [Slow-Mag] 128 mg PO DAILY@1700 02/07/16 05/22/19 History Multivit-Min/Iron/Folic/Lutein 1 tab PO DAILY@1700 02/07/16 05/22/19 History [Centrum Silver Women Tablet] Atorvastatin [Lipitor] 40 mg PO HS@2100 10/17/16 05/22/19 History Bisacodyl [Dulcolax] 10 mg RECTAL DAILY PRN 07/26/18 05/22/19 History Calcium Carbonate [Calcium] 600 mg PO DAILY@0600 07/26/18 05/22/19 History Chlorpheniramine/Dextromethorp 1 tab PO Q6H PRN 07/26/18 05/22/19 History [Coricidin Hbp Cough & Cold Tab] Docusate [Colace] 100 mg PO BID@0800,1700 07/26/18 05/22/19 History Gabapentin [Neurontin] 200 mg PO BID@0600,1400 07/26/18 05/22/19 History Hydrochlorothiazide [Hydrodiuril] 25 mg PO DAILY@0800 07/26/18 05/22/19 History INSULIN LISPRO (HumaLOG) [humaLOG] 32 unit SQ DAILY@0700 07/26/18 05/22/19 History INSULIN LISPRO (humaLOG) [humaLOG] 8 unit SQ DAILY@1100 07/26/18 05/22/19 History INSULIN LISPRO (humaLOG) [humaLOG] 24 unit SQ DAILY@1630 07/26/18 05/22/19 History Ibuprofen [Motrin Ib] 400 mg PO Q12H PRN 07/26/18 05/22/19 History Liraglutide [Victoza 2-Aguila] 1.2 mg SQ DAILY@0700 07/26/18 05/22/19 History Magnesium Hydroxide [Milk of 7,200 mg PO DIRECTED PRN 07/26/18 05/22/19 History Magnesia Concentrate] Metoprolol Tartrate [Lopressor] 100 mg PO BID@0800,1700 07/26/18 05/22/19 History Na Phos,M-B/Na Phos,Di-Ba [Fleet 133 ml RECTAL DAILY PRN 07/26/18 05/22/19 History Adult] Prazosin HCl 2 mg PO TID@0600,1400,2100 07/26/18 05/22/19 History Spironolactone [Aldactone] 12.5 mg PO DAILY@0800 07/26/18 05/22/19 History amLODIPine [Norvasc] 10 mg PO DAILY@0800 07/26/18 05/22/19 History Albuterol Nebulized [Ventolin 2.5 mg INHALATION RT-Q4H PRN 05/22/19 05/22/19 History Nebulized] Cholecalciferol [Vitamin D3 (25 4,000 unit PO DAILY@1700 05/22/19 05/22/19 History Mcg = 1000 Iu)] Eucerin Cream 1 applic TOPICAL TID 05/22/19 05/22/19 History Gabapentin [Neurontin] 300 mg PO HS@2100 05/22/19 05/22/19 History Insulin Detemir (Levemir) [Levemir] 50 unit SQ HS@209905/22/19 05/22/19 History Losartan [Cozaar] 50 mg PO BID@0800,2100 05/22/19 05/22/19 History [place]-3 Capsule(Unknown Dose) 1 cap PO DAILY@1700 05/22/19 05/22/19 History SILVER sulfADIAZINE Cream 1 applic TOPICAL DAILY 05/22/19 05/22/19 History [Silvadene 1% Cream] Allergies Allergy/AdvReac Type Severity Reaction Status Date / Time No Known Allergies Allergy Verified 05/22/19 15:14 Physical Exam Vitals: Vital Signs Temp Pulse Resp BP BP Pulse Ox 05/23/19 08:00 98.8 F 65 27 H 129/59 95 05/23/19 07:00 59 L 26 H 117/59 96 05/23/19 06:00 59 L 26 H 135/65 97 05/23/19 05:00 69 4 L 158/75 93 L 05/23/19 04:00 101.1 F H 75 27 H 159/70 96 05/23/19 03:00 75 27 H 152/75 96 05/23/19 02:45 76 05/23/19 02:32 72 05/23/19 02:00 67 26 H 133/84 96 05/23/19 01:00 68 26 H 158/71 96 05/23/19 00:13 70 26 H 142/67 95 05/23/19 00:00 99.7 F H 77 26 H 141/55 96 05/22/19 23:09 78 26 H 05/22/19 23:00 67 26 H 145/58 98 05/22/19 22:56 76 26 H 05/22/19 22:00 66 26 H 156/67 98 05/22/19 21:00 65 26 H 144/84 98 05/22/19 20:30 67 26 H 152/77 97 05/22/19 20:00 99.1 F 74 26 H 132/55 97 05/22/19 19:30 68 26 H 152/76 96 05/22/19 19:00 75 26 H 163/72 97 05/22/19 18:55 74 26 H 05/22/19 18:44 76 26 H 05/22/19 18:30 76 26 H 173/76 98 05/22/19 18:00 69 26 H 165/70 99 05/22/19 17:30 67 26 H 154/92 100 05/22/19 17:00 63 26 H 159/77 99 05/22/19 16:30 66 26 H 159/69 100 05/22/19 16:00 99.2 F 68 21 160/74 99 05/22/19 15:32 75 26 H 05/22/19 15:30 62 26 H 173/99 99 05/22/19 15:19 78 26 H 05/22/19 15:00 64 27 H 164/84 99 05/22/19 14:30 67 26 H 162/89 100 05/22/19 14:00 79 21 144/72 97 05/22/19 13:30 66 24 172/53 96 05/22/19 13:00 70 20 172/73 98 05/22/19 12:15 99.3 F 24 158/72 98 Intake and Output 05/22/19 05/23/19 05/23/19 22:59 06:59 14:59 Intake Total 350 260 40 Output Total 1785 1165 110 Balance -1435 -905 -70 Intake: IV 250 260 40 0.9 150 160 40 Piperacillin-Tazobactam 3 100 .375 gm In Sodium Chloride 0.9% 100 ml @ 25 mls/hr IVPB Q8HR [facility] Rx# :[id number] levETIRAcetam IV 500 mg 100 In Sodium Chloride 0.9% 100 ml @ 400 mls/hr IVPB Q12HR [facility] Rx#:[id number] Intake, IV Titration 100 Amount Piperacillin-Tazobactam 3 100 .375 gm In Sodium Chloride 0.9% 100 ml @ 25 mls/hr IVPB Q8HR [facility] Rx# :[id number] Output: Urine 1785 1165 110 Other: Voiding Method Indwelling Catheter Indwelling Catheter Weight 158.9 kg GENERAL EXAM: 74-year-old white female intubated on mechanical ventilator, without sedation, does not follow commands, at times has a left upward gaze comfortable in no apparent distress. HEAD: Normocephalic/atraumatic. EYES: Normal reaction of pupils, equal size. Conjunctiva pink, sclera white. NOSE: Clear with pink turbinates. THROAT: No erythema or exudates. NECK: No masses, no JVD, no thyroid enlargement, no adenopathy. CHEST: No chest wall deformity. Symmetrical expansion. LUNGS: Equal air entry with no crackles, wheeze, rhonchi or dullness. CVS: Regular rate and rhythm, normal S1 and S2, no gallops, no murmurs, no rubs ABDOMEN: Soft, nontender. No hepatosplenomegaly, normal bowel sounds, no guarding or rigidity. EXTREMITIES: No clubbing, 2+ lower extremity edema, no cyanosis, 2+ pulses and upper and lower extremities. MUSCULOSKELETAL: Muscle strength and tone normal. SPINE: No scoliosis or deformity SKIN: No rashes CENTRAL NERVOUS SYSTEM: Unresponsive. Results - Laboratory Findings CBC and BMP: 05/23/19 04:17 05/23/19 04:17 ABG ABG pH 7.65 (7.35-7.45) H* 05/23/19 05:03 ABG pCO2 37 mmHg (35-45) 05/23/19 05:03 ABG pO2 85 mmHg (83-108) 05/23/19 05:03 ABG O2 Saturation 97.9 % (94-97) H 05/23/19 05:03 Abnormal lab findings: Abnormal Labs 05/22/19 05/22/19 05/22/19 12:12 13:37 17:04 RBC 3.71 L Hgb 11.3 L Hct Plt Count 114 L Neutrophils # 7.9 H Lymphocytes # 0.7 L ABG pH ABG HCO3 ABG Total CO2 ABG O2 Saturation Potassium Chloride Carbon Dioxide BUN Glucose POC Glucose (mg/dL) 155 H Urine Blood Moderate H Urine RBC 52 H Hyaline Casts 6 H Urine Mucus Rare H 05/22/19 05/22/19 05/22/19 17:04 17:55 20:17 RBC Hgb Hct Plt Count Neutrophils # Lymphocytes # ABG pH ABG HCO3 ABG Total CO2 ABG O2 Saturation Potassium Chloride 96 L Carbon Dioxide 37 H BUN 32 H Glucose 181 H POC Glucose (mg/dL) 185 H 206 H Urine Blood Urine RBC Hyaline Casts Urine Mucus 05/23/19 05/23/19 05/23/19 00:05 04:17 04:17 RBC 3.54 L Hgb 10.7 L Hct 33.4 L Plt Count 130 L Neutrophils # 8.0 H Lymphocytes # ABG pH ABG HCO3 ABG Total CO2 ABG O2 Saturation Potassium 2.9 L Chloride 95 L Carbon Dioxide 39 H BUN 31 H Glucose 184 H POC Glucose (mg/dL) 195 H Urine Blood Urine RBC Hyaline Casts Urine Mucus 05/23/19 05/23/19 05:03 06:15 RBC Hgb Hct Plt Count Neutrophils # Lymphocytes # ABG pH 7.65 H* ABG HCO3 41 H* ABG Total CO2 42 H ABG O2 Saturation 97.9 H Potassium Chloride Carbon Dioxide BUN Glucose POC Glucose (mg/dL) 195 H Urine Blood Urine RBC Hyaline Casts Urine Mucus - Diagnostic Findings Chest x-ray: report reviewed, image reviewed CT scan - chest: report reviewed, image reviewed Assessment and Plan Plan: Assessment: #1. Cardiac arrest, status post carotid pulmonary resuscitation with approximately down time of 10-20 minutes with return of spontaneous circulation #2. Acute hypoxic respiratory failure related to the above #3. Acute anoxic brain injury #4. Hypertension #5. Hyperlipidemia #6. Diabetes mellitus type 2 with peripheral neuropathy #7. Morbid obesity #8. Gout #9. Anxiety/depression #10. Osteoarthritis #11. Gait dysfunction #12. Resident of a senior care Plan: Patient has not regained consciousness, she remains unresponsive, although her brainstem reflexes are present. He has been evaluated by neurology and EEG showed her background slowing. Hemodynamically she remains stable, she remains intubated on mechanical ventilator, this morning's chest x-ray and blood gases have been reviewed. X-ray shows overall improved aeration of the lungs however bibasilar opacities and trace left pleural effusion remaining. FiO2 was cut back to 80%. Labs have been reviewed. No fever or chills, no leukocytosis. Patient is nonoliguric. Today patient's family was updated on patient's prognosis and the decision was made to change her CODE STATUS to DO NOT RESUSCITATE. Over the last 24 hours patient has not gained consciousness, or started following a command despite lack of sedation. Patient also had a conversation with neurology, and admitted decision to proceed with extubation, and comfort care measures and hospice referral. This is reasonable given patient's baseline functional status, multiple comorbidities and age and lack of neurological improvement since resuscitation. Once the weaving loom operator arrives and wrist the family arrived we will proceed with extubation and comfort care measures. Referral has been made to hospice I performed a history & physical examination of the patient and discussed their management with my nurse practitioner, Alysia Gonzales. I reviewed the nurse practitioner's note and agree with the documented findings and plan of care. Lung sounds are positive for diminished breath sounds at the bases. The findings and the impression was discussed with the patient. I attest to the documentation by the nurse practitioner. Time with Patient: Greater than 30
[2019-05-23] MEDS ORDERED: PANTOPRAZOLE 40 MG/10 ML VIAL IVP SCH (09:00)
[2019-05-23] MEDS ORDERED: ENOXAPARIN 30 MG/0.3 ML SYRINGE SQ SCH (09:00)
[2019-05-23 09:05] VITALS: RESP 26
[2019-05-23] MEDS: CHLORHEXIDINE GLUCONATE 15 ML CUP MUCOUS MEM SCH (09:14)
[2019-05-23 10:02] VITALS: PULSE 64
[2019-05-23] MEDS ORDERED: LORazepam 2 MG/ML INJ IV ONE (10:10)
[2019-05-23] MEDS ORDERED: MORPHINE SULFATE 4 MG/ML SYRINGE IVP ONE (10:10)
[2019-05-23 11:05] VITALS: BP 123/62
--- NOTE | 2019-05-23 22:47 | P.HPIM ---
History of Present Illness H&P Date: 05/22/19 Chief Complaint: Cardiac arrest Presenting complaint: Collapsed Interval history: This is a 64-year-old patient of Dr. Hastings was at the [facility]. Chronic stable medical conditions included lumbar radicular neuropathy, osteoarthritis, peripheral neuropathy, hypertension, hyperlipidemia, gout, diabetes, anxiety depression. She lives at the [facility]. Patient nonambulatory. Very much wheelchair bound. Patient initially presented to [facility] where she had an unresponsive episode at the [facility]. EMS was called out. Had a cardiac arrest followed with asystole. Decided epinephrine. Had a bout of atrial fibrillation. Patient is intubated. Computed tomography scan of the brain did show some cerebral edema and chest x-ray showed some pulmonary edema. Patient was seen by Dr. Witt from [facility]. Patient did not have neurology service at [facility] hence patient was transferred here. Patient is [place] was informed was patient's power of music artist. I transferred the patient went to [facility] Patient arrived to [facility]. Health Information Managers Dr. Buenrostro was consulted. So was cardiology. Also neurology. Patient remains on the ventilator. Prognosis guarded. Admitted to the ICU. EEG was done that showed evidence of toxic metabolic in social activity with diffuse findings. Assessment: -Cardiac arrest with a rhythm of asystole downtime exactly unknown -Anoxic brain injury, with metabolic encephalopathy -Cerebral edema -Chronic medical debility -Diabetes mellitus type 2 -Hyperlipidemia -Chronic gout Plan: Consultation was made with Dr. Buenrostro from critical care, neurology, cardiology. . Past Medical History Past Medical History: Atrial Fibrillation, Diabetes Mellitus, Hyperlipidemia, Hypertension, Osteoarthritis (OA) Additional Past Medical History / Comment(s): Depression, Anxiety, Morbid Obesity, neuropathy/FEET, gout lt ankle,chronic back pain, lt rotator cuff tear,recent lt ankle strain. History of Any Multi-Drug Resistant Organisms: None Reported Past Surgical History: Hysterectomy, Joint Replacement, Tonsillectomy Additional Past Surgical History / Comment(s): bilateral knee replacement , hysterectomy- 5 pound benign stump tumor removed Past Anesthesia/Blood Transfusion Reactions: No Reported Reaction Past Psychological History: Anxiety, Depression Additional Psychological History / Comment(s): pt lives with her sig other of 19 years-luis fernando. pt stated recently was hospitalized at [facility] for the same thing she is coming in with on 02-06-16. pt had just gotten out of rehab at [facility] today ,went home and was to weak to get herself to bathroom and fell. Smoking Status: Unknown if ever smoked Past Alcohol Use History: None Reported Past Drug Use History: None Reported - Past Family History Mother Family Medical History: Congestive Heart Failure (CHF), Coronary Artery Disease (CAD), Diabetes Mellitus Brother(s) Additional Family Medical History / Comment(s): at age 38-aneurysm Father Family Medical History: Coronary Artery Disease (CAD), Diabetes Mellitus, Renal Disease Additional Family Medical History / Comment(s): cabg Medications and Allergies Allergies Allergy/AdvReac Type Severity Reaction Status Date / Time No Known Allergies Allergy Verified 05/23/19 13:05 Physical Exam Vitals: Vital Signs Temp Pulse Resp BP BP Pulse Ox 05/23/19 10:00 64 26 H 138/79 97 05/23/19 09:00 60 26 H 136/60 97 05/23/19 08:00 98.8 F 65 27 H 129/59 95 05/23/19 07:00 59 L 26 H 117/59 96 05/23/19 06:00 59 L 26 H 135/65 97 05/23/19 05:00 69 4 L 158/75 93 L 05/23/19 04:00 101.1 F H 75 27 H 159/70 96 05/23/19 03:00 75 27 H 152/75 96 05/23/19 02:45 76 05/23/19 02:32 72 05/23/19 02:00 67 26 H 133/84 96 05/23/19 01:00 68 26 H 158/71 96 05/23/19 00:13 70 26 H 142/67 95 05/23/19 00:00 99.7 F H 77 26 H 141/55 96 05/22/19 23:09 78 26 H 05/22/19 23:00 67 26 H 145/58 98 05/22/19 22:56 76 26 H 05/22/19 22:00 66 26 H 156/67 98 05/22/19 21:00 65 26 H 144/84 98 05/22/19 20:30 67 26 H 152/77 97 05/22/19 20:00 99.1 F 74 26 H 132/55 97 05/22/19 19:30 68 26 H 152/76 96 05/22/19 19:00 75 26 H 163/72 97 05/22/19 18:55 74 26 H 05/22/19 18:44 76 26 H 05/22/19 18:30 76 26 H 173/76 98 05/22/19 18:00 69 26 H 165/70 99 05/22/19 17:30 67 26 H 154/92 100 05/22/19 17:00 63 26 H 159/77 99 05/22/19 16:30 66 26 H 159/69 100 05/22/19 16:00 99.2 F 68 21 160/74 99 05/22/19 15:32 75 26 H 05/22/19 15:30 62 26 H 173/99 99 05/22/19 15:19 78 26 H 05/22/19 15:00 64 27 H 164/84 99 05/22/19 14:30 67 26 H 162/89 100 05/22/19 14:00 79 21 144/72 97 05/22/19 13:30 66 24 172/53 96 05/22/19 13:00 70 20 172/73 98 05/22/19 12:15 99.3 F 24 158/72 98 Intake and Output 05/22/19 05/23/19 05/23/19 22:59 06:59 14:59 Intake Total 350 260 280 Output Total 1785 1165 515 Balance -8148 -905 -527 Intake: IV 250 260 280 0.9 150 160 80 Piperacillin-Tazobactam 3 100 100 .375 gm In Sodium Chloride 0.9% 100 ml @ 25 mls/hr IVPB Q8HR [facility] Rx# :[id number] levETIRAcetam IV 500 mg 100 100 In Sodium Chloride 0.9% 100 ml @ 400 mls/hr IVPB Q12HR [facility] Rx#:[id number] Intake, IV Titration 100 Amount Piperacillin-Tazobactam 3 100 .375 gm In Sodium Chloride 0.9% 100 ml @ 25 mls/hr IVPB Q8HR [facility] Rx# :[id number] Output: Urine 1785 1165 515 Other: Voiding Method Indwelling Catheter Indwelling Catheter Indwelling Catheter Weight 158.9 kg Results CBC & Chem 7: 11/20/19 04:17 05/23/19 04:17 Labs: Abnormal Lab Results - Last 24 Hours (Table) 05/22/19 05/22/19 05/22/19 Range/Units 12:12 13:37 17:04 RBC 3.71 L (3.80-5.40) m/uL Hgb 11.3 L (11.4-16.0) gm/dL Hct (34.0-46.0) % Plt Count 114 L (150-450) k/uL Neutrophils # 7.9 H (1.3-7.7) k/uL Lymphocytes # 0.7 L (1.0-4.8) k/uL ABG pH (7.35-7.45) ABG HCO3 (21-25) mmol/L ABG Total CO2 (19-24) mmol/L ABG O2 Saturation (94-97) % Potassium (3.5-5.1) mmol/L Chloride (98-107) mmol/L Carbon Dioxide (22-30) mmol/L BUN (7-17) mg/dL Glucose (74-99) mg/dL POC Glucose (mg/dL) 155 H (75-99) mg/dL Urine Blood Moderate H (Negative) Urine RBC 52 H (0-5) /hpf Hyaline Casts 6 H (0-2) /lpf Urine Mucus Rare H (None) /hpf 05/22/19 05/22/19 05/22/19 Range/Units 17:04 17:55 20:17 RBC (3.80-5.40) m/uL Hgb (11.4-16.0) gm/dL Hct (34.0-46.0) % Plt Count (150-450) k/uL Neutrophils # (1.3-7.7) k/uL Lymphocytes # (1.0-4.8) k/uL ABG pH (7.35-7.45) ABG HCO3 (21-25) mmol/L ABG Total CO2 (19-24) mmol/L ABG O2 Saturation (94-97) % Potassium (3.5-5.1) mmol/L Chloride 96 L (98-107) mmol/L Carbon Dioxide 37 H (22-30) mmol/L BUN 32 H (7-17) mg/dL Glucose 181 H (74-99) mg/dL POC Glucose (mg/dL) 185 H 206 H (75-99) mg/dL Urine Blood (Negative) Urine RBC (0-5) /hpf Hyaline Casts (0-2) /lpf Urine Mucus (None) /hpf 05/23/19 05/23/19 05/23/19 Range/Units 00:05 04:17 04:17 RBC 3.54 L (3.80-5.40) m/uL Hgb 10.7 L (11.4-16.0) gm/dL Hct 33.4 L (34.0-46.0) % Plt Count 130 L (150-450) k/uL Neutrophils # 8.0 H (1.3-7.7) k/uL Lymphocytes # (1.0-4.8) k/uL ABG pH (7.35-7.45) ABG HCO3 (21-25) mmol/L ABG Total CO2 (19-24) mmol/L ABG O2 Saturation (94-97) % Potassium 2.9 L (3.5-5.1) mmol/L Chloride 95 L (98-107) mmol/L Carbon Dioxide 39 H (22-30) mmol/L BUN 31 H (7-17) mg/dL Glucose 184 H (74-99) mg/dL POC Glucose (mg/dL) 195 H (75-99) mg/dL Urine Blood (Negative) Urine RBC (0-5) /hpf Hyaline Casts (0-2) /lpf Urine Mucus (None) /hpf 05/23/19 05/23/19 Range/Units 05:03 06:15 RBC (3.80-5.40) m/uL Hgb (11.4-16.0) gm/dL Hct (34.0-46.0) % Plt Count (150-450) k/uL Neutrophils # (1.3-7.7) k/uL Lymphocytes # (1.0-4.8) k/uL ABG pH 7.65 H* (7.35-7.45) ABG HCO3 41 H* (21-25) mmol/L ABG Total CO2 42 H (19-24) mmol/L ABG O2 Saturation 97.9 H (94-97) % Potassium (3.5-5.1) mmol/L Chloride (98-107) mmol/L Carbon Dioxide (22-30) mmol/L BUN (7-17) mg/dL Glucose (74-99) mg/dL POC Glucose (mg/dL) 195 H (75-99) mg/dL Urine Blood (Negative) Urine RBC (0-5) /hpf Hyaline Casts (0-2) /lpf Urine Mucus (None) /hpf
--- NOTE | 2019-05-23 22:53 | P.DS ---
Providers Date of admission: 05/22/19 12:14 Expected date of discharge: 05/23/19 Attending physician: Raymond Obrien Consults: 05/22/19 13:23 Consult Physician Urgent Consulting Provider: Audrey Saldaña Consult Reason/Comments: Cardiac arrest, anoxic Do you want consulting provider notified?: Yes Placement Type Exists?: Yes 05/22/19 18:17 Consult Physician Routine Consulting Provider: Tae Dejesus Consult Reason/Comments: Critical care Do you want consulting provider notified?: Yes 05/22/19 18:23 Consult Physician Routine Consulting Provider: Dann Odonnell Consult Reason/Comments: cardiac arrest Do you want consulting provider notified?: Yes Primary care physician: Stated None Hospital Course: Hospital course: This is a 64-year-old patient of Dr. Hastings was at the [facility]. Chronic stable medical conditions included lumbar radicular neuropathy, osteoarthritis, peripheral neuropathy, hypertension, hyperlipidemia, gout, diabetes, anxiety depression. She lives at the [facility]. Patient nonambulatory. Very much wheelchair bound. Patient initially presented to [facility] where she had an unresponsive episode at the [facility]. EMS was called out. Had a cardiac arrest followed with asystole. Decided epinephrine. Had a bout of atrial fibrillation. Patient is intubated. Computed tomography scan of the brain did show some cerebral edema and chest x-ray showed some pulmonary edema. Patient was seen by Dr. Witt from [facility]. Patient did not have neurology service at [facility] hence patient was transferred here. Patient is [place] was informed was patient's power of tax associate attorney. I transferred the patient went to [facility] Patient arrived to [facility]. Director Of Music Therapy Dr. Buenrostro was consulted. So was cardiology. Also neurology. Patient remains on the ventilator. Prognosis guarded. Admitted to the ICU. EEG was done that showed evidence of toxic metabolic in social activity with diffuse findings Patient continued to poorly. Patient niece is also the power of tax associate attorney decided to make the patient comfort care. Nurse called me this morning hospice services were consulted. And patient be admitted to [facility]. For symptom control. Discharge diagnoses: -Cardiac arrest with a diagnosis of asystole -Acute hypoxic respiratory failure requiring ventilator support -Anoxic brain injury with metabolic encephalopathy -Acute pulmonary edema -Acute cerebral edema -Chronic medical debility -Hyperlipidemia -Chronic gout -Diabetes mellitus type 2 with peripheral neuropathy -Morbid obesity BMI 44.9 - Disposition: GIP/inpatient hospice Patient Condition at Discharge: Poor Plan - Discharge Summary Discharge Rx Participant: No New Discharge Prescriptions: Discontinued Aspirin EC [Ecotrin Low Dose] 81 mg PO DAILY@1700 metFORMIN HCL 1,000 mg PO BID@0800,1700 Nateglinide [Starlix] 120 mg PO DAILY@0800 Magnesium Chloride [Slow-Mag] 128 mg PO DAILY@1700 Ascorbic Acid [Vitamin C] 500 mg PO DAILY@1700 Multivit-Min/Iron/Folic/Lutein [Centrum Silver Women Tablet] 1 tab PO DAILY@1700 Atorvastatin [Lipitor] 40 mg PO HS@2100 Magnesium Hydroxide [Milk of Magnesia Concentrate] 7,200 mg PO DIRECTED PRN PRN Reason: Constipation Ibuprofen [Motrin Ib] 400 mg PO Q12H PRN PRN Reason: Pain Na Phos,M-B/Na Phos,Di-Ba [Fleet Adult] 133 ml RECTAL DAILY PRN PRN Reason: Constipation Chlorpheniramine/Dextromethorp [Coricidin Hbp Cough & Cold Tab] 1 tab PO Q6H PRN PRN Reason: Cough Bisacodyl [Dulcolax] 10 mg RECTAL DAILY PRN PRN Reason: Constipation Prazosin HCl 2 mg PO TID@0600,1400,2100 Gabapentin [Neurontin] 200 mg PO BID@0600,1400 Metoprolol Tartrate [Lopressor] 100 mg PO BID@0800,1700 Docusate [Colace] 100 mg PO BID@0800,1700 Liraglutide [Victoza 2-Aguila] 1.2 mg SQ DAILY@0700 Spironolactone [Aldactone] 12.5 mg PO DAILY@0800 amLODIPine [Norvasc] 10 mg PO DAILY@0800 INSULIN LISPRO (humaLOG) [humaLOG] 8 unit SQ DAILY@1100 Hydrochlorothiazide [Hydrodiuril] 25 mg PO DAILY@0800 INSULIN LISPRO (HumaLOG) [humaLOG] 32 unit SQ DAILY@0700 INSULIN LISPRO (humaLOG) [humaLOG] 24 unit SQ DAILY@1630 Calcium Carbonate [Calcium] 600 mg PO DAILY@0600 Eucerin Cream 1 applic TOPICAL TID [place]-3 Capsule(Unknown Dose) 1 cap PO DAILY@1700 Albuterol Nebulized [Ventolin Nebulized] 2.5 mg INHALATION RT-Q4H PRN PRN Reason: Shortness Of Breath Cholecalciferol [Vitamin D3 (25 Mcg = 1000 Iu)] 4,000 unit PO DAILY@1700 Gabapentin [Neurontin] 300 mg PO HS@2100 Insulin Detemir (Levemir) [Levemir] 50 unit SQ HS@2100 SILVER sulfADIAZINE Cream [Silvadene 1% Cream] 1 applic TOPICAL DAILY Losartan [Cozaar] 50 mg PO BID@0800,2100 Discharge Disposition: DISCH TO HOSPICE MED FACILTY
== END 2019-05-23 11:44 | disposition hospice, inpatient (51) | DRG 296 ==
LOC: 2SICU 12:14
PROVIDERS: ADMIT Hospitalist; ATTEND Hospitalist
PROC: 5A1935Z Respiratory Ventilation, Less than 24 Consecutive Hours (ICD-10-PCS; principal; 2019-05-22)
DX: I46.9 Cardiac arrest, cause unspecified (principal); J96.01 Acute respiratory failure with hypoxia; G93.6 Cerebral edema; J81.0 Acute pulmonary edema; R40.2113 Coma scale, eyes open, never, at hospital admission; R40.2213 Coma scale, best verbal response, none, at hospital admission; R40.2313 Coma scale, best motor response, none, at hospital admission; G93.41 Metabolic encephalopathy; G93.1 Anoxic brain damage, not elsewhere classified; Z68.43 Body mass index [BMI] 50.0-59.9, adult; E66.01 Morbid (severe) obesity due to excess calories; Z66 Do not resuscitate; Z51.5 Encounter for palliative care; E11.42 Type 2 diabetes mellitus with diabetic polyneuropathy; I11.9 Hypertensive heart disease without heart failure; I44.7 Left bundle-branch block, unspecified; G89.29 Other chronic pain; I48.91 Unspecified atrial fibrillation; E78.5 Hyperlipidemia, unspecified; M54.16 Radiculopathy, lumbar region; M19.90 Unspecified osteoarthritis, unspecified site; F41.8 Other specified anxiety disorders; R26.9 Unspecified abnormalities of gait and mobility; M1A.9XX0 Chronic gout, unspecified, without tophus (tophi); Z79.82 Long term (current) use of aspirin; Z79.4 Long term (current) use of insulin; Z79.899 Other long term (current) drug therapy; Z99.3 Dependence on wheelchair; Z90.710 Acquired absence of both cervix and uterus; Z96.653 Presence of artificial knee joint, bilateral; Z98.890 Other specified postprocedural states; Z82.49 Family history of ischemic heart disease and other diseases of the circulatory system; Z83.3 Family history of diabetes mellitus; Z84.1 Family history of disorders of kidney and ureter
CPT/HCPCS: 36600; 71045; 80048; 81001; 82805; 85025; 94003; 94640; 95816

== ENCOUNTER 2019-05-23 09:15 | Inpatient (IN) | payer MEDICAID ==
[2019-05-23] MEDS ORDERED: LORazepam 2 MG/ML INJ IV PRN (10:22)
[2019-05-23] MEDS ORDERED: ATROPINE OPHTH SOLN 1% 5ML BTL SUBLINGUAL PRN (10:22)
[2019-05-23] MEDS ORDERED: ACETAMINOPHEN SUPPOSITORY 650 MG SUPP RECTAL PRN (10:22)
[2019-05-23] MEDS ORDERED: ONDANSETRON 4 MG/2 ML VIAL IVP PRN (10:22)
[2019-05-23] MEDS ORDERED: SCOPOLAMINE 1.5MG/72HR PATCH TRANSDERM SCH (10:30)
[2019-05-23] MEDS ORDERED: MORPHINE SULFATE (100 MG/2 ML) 100 MG in SODIUM CHLORIDE 0.9% 100 ML IV SCH (11:00)
[2019-05-23 12:34] VITALS: BMI 54.8
[2019-05-24 02:23] VITALS: TEMP 98.8
[2019-05-24 05:15] VITALS: BP 103/43; PULSE 51; RESP 16
--- NOTE | 2019-05-28 17:15 | P.DS ---
Providers Date of admission: 05/23/19 11:47 Expected date of discharge: 05/24/19 Attending physician: Raymond Obrien Primary care physician: [facility] Course: Patient was admitted to the hospitalist service under GIP. Comfort package was used. Family at the bedside. Patient's succumbed to the underlying condition. Patient Problem cause of : Coronary artery disease Plan - Discharge Summary Discharge Rx Participant: No Discharge Disposition: - Preliminary Cause of Preliminary Cause of : Coronary artery disease
== END 2019-05-24 11:28 | disposition expired | DRG 951 ==
LOC: 2SICU 11:47
PROVIDERS: ADMIT Hospitalist; ATTEND Hospitalist
DX: Z51.5 Encounter for palliative care (principal); G93.41 Metabolic encephalopathy; G93.6 Cerebral edema; G93.1 Anoxic brain damage, not elsewhere classified; Z68.43 Body mass index [BMI] 50.0-59.9, adult; Z66 Do not resuscitate; E11.42 Type 2 diabetes mellitus with diabetic polyneuropathy; Z86.74 Personal history of sudden cardiac arrest; E66.01 Morbid (severe) obesity due to excess calories; M19.90 Unspecified osteoarthritis, unspecified site; I10 Essential (primary) hypertension; E78.5 Hyperlipidemia, unspecified; M1A.9XX0 Chronic gout, unspecified, without tophus (tophi); F41.9 Anxiety disorder, unspecified; F32.9 Major depressive disorder, single episode, unspecified; G89.29 Other chronic pain; M54.9 Dorsalgia, unspecified; R53.81 Other malaise; Z90.710 Acquired absence of both cervix and uterus; Z96.653 Presence of artificial knee joint, bilateral; Z99.3 Dependence on wheelchair; Z82.49 Family history of ischemic heart disease and other diseases of the circulatory system; Z83.3 Family history of diabetes mellitus; Z84.1 Family history of disorders of kidney and ureter